=== PATIENT | male | born 1950 | race Caucasian/White ===

== ENCOUNTER → 2019-10-01 15:37 | Outpatient (BNVA) | payer MEDICARE, OTHER, SELFPAY | PROVIDERS: Family Provider Family Medicine; PCP Family Medicine; Visit Provider Internal Medicine Rheumatology | DX: M32.19 Other organ or system involvement in systemic lupus erythematosus (principal); Z79.899 Other long term (current) drug therapy; M05.9 Rheumatoid arthritis with rheumatoid factor, unspecified; D69.6 Thrombocytopenia, unspecified; R76.8 Other specified abnormal immunological findings in serum; M17.0 Bilateral primary osteoarthritis of knee; M32.9 Systemic lupus erythematosus, unspecified | CPT/HCPCS: 99214 ==

== ENCOUNTER → 2020-01-20 12:56 | Outpatient (BNVA) | payer MEDICARE, OTHER, SELFPAY | PROVIDERS: Family Provider Family Medicine; PCP Family Medicine; Visit Provider Internal Medicine Rheumatology | DX: M32.19 Other organ or system involvement in systemic lupus erythematosus (principal); Z79.899 Other long term (current) drug therapy; M05.9 Rheumatoid arthritis with rheumatoid factor, unspecified; R76.8 Other specified abnormal immunological findings in serum; D69.6 Thrombocytopenia, unspecified; M17.0 Bilateral primary osteoarthritis of knee; Z79.52 Long term (current) use of systemic steroids; Z91.81 History of falling | CPT/HCPCS: 99214 ==

== ENCOUNTER 2020-01-21 14:58 | Outpatient (CLI) | payer MEDICARE, OTHER, SELFPAY ==
--- NOTE | 2020-01-21 15:25 | XR_ITS ---
WS: [id number] LEFT RIBS, MULTIPLE VIEWS HISTORY: rib pain COMPARISON: None available. Ribs: Nondisplaced anterolateral ninth and 10th rib fractures. The remaining ribs appear to be intact . Lungs and mediastinum: Subsegmental atelectasis at the LEFT lung base with blunting of the costophren ic angle. No pneumothorax. XR/XR ribs LT 2V* [id number] IMPRESSION: 1. Nondisplaced LEFT anterolateral ninth and 10th rib fractures. 2. Subsegmental atelectasis at the LEFT lung base.
== END 2020-01-21 14:59 | disposition home or self-care (01) ==
LOC: WPI 15:00
PROVIDERS: Family Provider Family Medicine; PCP Family Medicine; Visit Provider Internal Medicine Rheumatology
DX: S22.42XA Multiple fractures of ribs, left side, initial encounter for closed fracture (principal); X58.XXXA Exposure to other specified factors, initial encounter; J98.11 Atelectasis
CPT/HCPCS: 71100

== ENCOUNTER → 2020-05-23 14:02 | Outpatient (BNVA) | payer MEDICARE, OTHER, SELFPAY | PROVIDERS: Family Provider Family Medicine; PCP Family Medicine; Visit Provider Internal Medicine Rheumatology | DX: R76.8 Other specified abnormal immunological findings in serum (principal); M32.19 Other organ or system involvement in systemic lupus erythematosus; Z79.899 Other long term (current) drug therapy; D69.6 Thrombocytopenia, unspecified; M17.0 Bilateral primary osteoarthritis of knee; Z87.09 Personal history of other diseases of the respiratory system | CPT/HCPCS: 99214 ==

== ENCOUNTER → 2021-05-15 14:53 | Outpatient (BNVA) | payer MEDICARE, OTHER, SELFPAY | PROVIDERS: Family Provider Family Medicine; PCP Family Medicine; Visit Provider Internal Medicine Rheumatology | DX: R76.8 Other specified abnormal immunological findings in serum (principal); M32.19 Other organ or system involvement in systemic lupus erythematosus; Z79.899 Other long term (current) drug therapy; M17.0 Bilateral primary osteoarthritis of knee; Z91.81 History of falling; Z71.89 Other specified counseling | CPT/HCPCS: 99214 ==

== ENCOUNTER 2021-06-06 20:00 | Outpatient (CLI) | payer MEDICARE, OTHER, SELFPAY | END 2021-06-06 20:01 | disposition home or self-care (01) | LOC: SLEEP 06-07 05:31 | PROVIDERS: Family Provider Family Medicine; PCP Family Medicine; Visit Provider Family Medicine | DX: G47.33 Obstructive sleep apnea (adult) (pediatric) (principal) | CPT/HCPCS: 95811 ==

== ENCOUNTER 2021-08-24 20:00 | Outpatient (CLI) | payer MEDICARE, OTHER, SELFPAY | END 2021-08-24 20:01 | disposition home or self-care (01) | LOC: SLEEP 08-25 06:39 | PROVIDERS: Family Provider Family Medicine; PCP Family Medicine; Visit Provider Family Medicine | DX: G47.33 Obstructive sleep apnea (adult) (pediatric) (principal) | CPT/HCPCS: 95811 ==

== ENCOUNTER → 2021-11-20 14:26 | Outpatient (BNVA) | payer MEDICARE, OTHER, SELFPAY | PROVIDERS: Family Provider Family Medicine; PCP Family Medicine; Visit Provider Internal Medicine Rheumatology | DX: R76.8 Other specified abnormal immunological findings in serum (principal); M32.19 Other organ or system involvement in systemic lupus erythematosus; D69.6 Thrombocytopenia, unspecified; M17.0 Bilateral primary osteoarthritis of knee; Z71.89 Other specified counseling | CPT/HCPCS: 99214 ==

== ENCOUNTER 2022-04-21 12:52 | Inpatient (IN) | payer MEDICARE, OTHER, SELFPAY ==
[2022-04-21] VITALS (61 sets, daily range): BP systolic 112–163; BP diastolic 67–113; PULSE 78–103; RESP 17–20; TEMP 36.9–37.1; O2SAT 88–95; BMI 33.0; BMI 31.4
--- NOTE | 2022-04-21 13:27 | XRR_ITS ---
PROCEDURE INFORMATION: Exam: XR Chest Exam date and time: 04/21/2022 2:20 PM Age: 72 years old Clinical indication: Shortness of breath TECHNIQUE: Imaging protocol: Radiologic exam of the chest. Views: 2 views. COMPARISON: CT chest w con* [id number] 06/06/2015 11:31 AM FINDINGS: Lungs: Right lower lobe atelectasis versus infiltrate. Right upper lobe 15 mm possible pulmonary nodule, chest CT could further evaluate this. Pleural spaces: Unremarkable. No pleural effusion. No pneumothorax. Heart/Mediastinum: Unremarkable. No cardiomegaly. Bones/joints: Unremarkable. XR/XR chest 2V* [id number] IMPRESSION: 1. Right lower lobe atelectasis versus infiltrate. 2. Right upper lobe 15 mm possible pulmonary nodule, chest CT could further evaluate this.
--- NOTE | 2022-04-21 13:43 | W.ED.GENADLT ---
HPI - General Adult General: Chief complaint: General Medical Stated complaint: low ox, congestion Time Seen by Provider: 04/21/22 13:08 History of Present Illness: 72-year-old male presents to the ER chief complaint of low oxygenation coughing and shortness of breath. Patient recalls that he got the flu when his family got sick just right after Thanksgiving he reports that he has had persistent shortness of breath with a cough since that time his reports that he had a coughing episode in it with he had some thick phlegm production patient reports no fevers or chills. He reports he does have a history of lupus in which he is taking hydroxychloroquine. Patient does not recall having chest pain or palpitation does report some mild chest pressure with his coughing reports when he coughs he does get greenish sputum production patient does not report any known significant cardiac history. Associated symptoms: Reports dyspnea and malaise; Deny chest pain, headache(s), nausea, rash, palpitations or vomiting Review of Systems General: Reports: 10 or more systems reviewed and unremarkable except in HPI and below Const: Reports: fever(s), body aches, fatigue and malaise; Denies: chills Eyes: Denies: change in vision or blurry vision Card: Denies: chest pain or palpitations Resp: Reports: dyspnea, productive cough, wheezing and change in phlegm color GI: Denies: abdominal pain, nausea or vomiting : Denies: flank pain Musc: Denies: extremity pain or extremity swelling Skin/Breast: Denies: rash or pruritus Neuro: Denies: headache(s) Psych: Denies: anxiety or depression Daniel/Lymph: Denies: easy bleeding All/Imm: Denies: urticaria, throat swelling or facial swelling PFSH ED PFSH: Medical History High risk medication use Immunization counseling Osteoarthritis of knees, bilateral Positive RUSH (antinuclear antibody) SLE (systemic lupus erythematosus) Thrombocytopenia Surgical History History of tonsillectomy Family History Other Cancer Hypertension Stroke Denies family history of Rheumatoid arthritis Systemic lupus erythematosus (SLE) in adult Social History (Reviewed 04/21/22 @ 16:57 by Chris Boone Smoking and tobacco status: never smoked Alcohol intake: never History of recent travel: No Physical Exam Const: COMMON NORMALS: no acute distress, patient oriented x3 and healthy appearing HENMT: COMMON NORMALS: normocephalic and atraumatic HEAD & SCALP: normocephalic and atraumatic Eye: COMMON NORMALS: Equal, round and reactive pupils present and EOMs intact bilaterally PUPIL: Yes Equal, round and reactive pupils present Neck/C-Spine: COMMON NORMALS: full ROM, supple and no JVD Lymph: LYMPHATIC: no lymphadenopathy noted Chest: COMMONS NORMALS: normal inspection of the chest and normal palpation of entire chest wall Resp: OTHER: Diminished breath sounds appreciated bilaterally no obvious symptoms wheezing or crackles noted Cardio: COMMON NORMALS: no JVD, regular rate and regular rhythm RATE: regular rate RHYTHM: regular rhythm GI: COMMON NORMALS: Normal to inspection, nondistended, normoactive bowel sounds present, Soft to palpation and non-tender INSPECTION: Yes normal to inspection PALPATION: Yes Soft to palpation : COMMON NORMALS: Yes no CVA tenderness BLADDER/KIDNEY EXAM: Yes no CVA tenderness Back/Pelvis: COMMON NORMALS: no CVA tenderness Extremity: COMMON NORMALS: normal to inspection and full ROM Neuro: COMMON NORMALS: patient oriented x3, CN's II-XII intact bilaterally, moves all extremities and no focal motor deficits Psych: COMMON NORMALS: mental status grossly normal, Normal thought process present, cooperative and normal affect THOUGHT PROCESS: Normal thought process present Skin: COMMON NORMALS: no rashes or lesions noted GENERAL SKIN EXAM: no rashes or lesions noted Course Vital Signs: Vital signs: Vital Signs Temperature 98.7 F 04/21/22 13:01 Pulse Rate 88 04/21/22 13:01 Respiratory Rate 17 04/21/22 13:01 Blood Pressure 163/108 04/21/22 14:45 Pulse Oximetry 90 04/21/22 14:45 Oxygen Delivery Me thod 04/21/22 13:01 [facility] - General Adult Medical Decision Making Due to the patient's symptoms and condition lab work and imaging will be obtained we will continue to follow medication will provided for the patient's of the symptoms. Patient's first cardiac troponin was found to be elevated 1 to wait for delta [place]. In addition patient was found to have a pulmonary nodule of 15 mm noted on his chest x-ray which is recommended he get a CT of the chest. Patient also has a questionable pneumonia we will continue to follow. Patient found to have pneumonia patient also liver enzymes are elevated we will be admitting the patient to the hospitalist discussed patient's case with Dr. Misa Quick acceptance to [facility] telemetry. Lab Data 04/21/22 13:47 04/21/22 13:47 Radiology Impressions Chest X-Ray 04/21/22 13:27 IMPRESSION: 1. Right lower lobe atelectasis versus infiltrate. 2. Right upper lobe 15 mm possible pulmonary nodule, chest CT could further evaluate this. Chest CT 04/21/22 15:34 IMPRESSION: 1. Bibasilar bilateral largely dependent atelectasis versus infiltrate along with right upper lobe somewhat focal infiltrate, felt to likely correspond to the suspected nodule on comparison chest x-ray. 2. Right middle lobe 6.9 mm pulmonary nodule. For patients at low risk (minimal or absent history of smoking and of other known risk factors), recommend CT Chest at 6-12 months, then consider CT Chest at 18-24 months. For patients at high risk (history of smoking or of other known risk factors), recommend CT Chest at 6-12 months, then CT Chest at 18-24 months. (Reference: Eloise) 3. Left kidney cyst incompletely visualized. 4. Cholelithiasis. 5. Scattered prominent subcentimeter short axis mediastinal lymph nodes, nonspecific. 6. Coronary artery atherosclerotic calcifications. 7. Emphysematous changes. COMMENTS: Consistent with the [place] [employer] [place] [employer]'s Incidental Findings Committee white paper (J Am Gene Radiol 2018): Any incidental renal lesion less than 1 cm or classified as too small to characterize, or any incidental cystic renal lesion characterized as simple-appearing, is likely benign. No follow-up imaging is recommended for these lesions per consensus recommendations based on imaging criteria. REFERENCES: Eloise Colindres, et al. Guidelines for Management of Incidental Pulmonary Nodules Detected on CT Images: From the Fleischner Society 2017. Radiology. 2017;284(1):228-243. Laboratory Results WBC 5.9 10^3/uL (4.0-10.0) 04/21/22 13:47 RBC 4.54 10^6/uL (4.1-5.3) 04/21/22 13:47 Hgb 14.4 g/dL (11.7-16.6) 04/21/22 13:47 Hct 40.9 % (42.0-52.0) L 04/21/22 13:47 MCV 90.1 fl (80-94) 04/21/22 13:47 MCH 31.7 pg (28.0-34.0) 04/21/22 13:47 MCHC 35.2 g/dL (30.0-36.0) 04/21/22 13:47 RDW 11.8 % (12.1-15.1) L 04/21/22 13:47 Plt Count 285 10^3/cmm (130-400) 04/21/22 13:47 MPV 9.4 fL (7.4-10.4) 04/21/22 13:47 Neut % (Auto) 70.9 % 04/21/22 13:47 Lymph % (Auto) 18.4 % 04/21/22 13:47 [place] % (Auto) 9.4 % 04/21/22 13:47 Eos % (Auto) 0.7 % 04/21/22 13:47 Baso % (Auto) 0.3 % 04/21/22 13:47 Neut # (Auto) 4.15 10^3/uL (1.8-7.7) 04/21/22 13:47 Lymph # (Auto) 1.1 10^3/uL (0.8-4.8) 04/21/22 13:47 [place] # (Auto) 0.6 10^3/uL (0.2-0.9) 04/21/22 13:47 Eos # (Auto) 0.0 10^3/uL (0.0-0.8) 04/21/22 13:47 Baso # (Auto) 0.0 10^3/uL (0.0-0.1) 04/21/22 13:47 Nucleated RBC % (auto) 0 % 04/21/22 13:47 Nucleated RBCs # 0.0 /100WBC 04/21/22 13:47 Sodium 133 mmol/L (136-145) L 04/21/22 13:47 Potassium 3.8 mmol/L (3.5-5.1) 04/21/22 13:47 Chloride 96 mmol/L (98-107) L 04/21/22 13:47 Carbon Dioxide 26 mmol/L (22-29) 04/21/22 13:47 Anion Gap 14.8 (5-19) 04/21/22 13:47 BUN 20 mg/dL (8-23) 04/21/22 13:47 Creatinine 0.9 mg/dL (0.7-1.2) 04/21/22 13:47 GFR Calculation 83.4 mL/min (90-130) L 04/21/22 13:47 Glucose 220 mg/dL (65-115) H 04/21/22 13:47 Calculated Osmolality 285 mOsm/kg (285-295) 04/21/22 13:47 Lactate 1.2 mmol/L (0.5-2.2) 04/21/22 13:47 Calcium 9.3 mg/dL (8.5-10.5) 04/21/22 13:47 Total Bilirubin 1.0 mg/dL (0.15-1.2) 04/21/22 13:47 AST 183 U/L (0-40) H 04/21/22 13:47 ALT 320 U/L (0-41) H 04/21/22 13:47 Alkaline Phosphatase 130 U/L (40-130) 04/21/22 13:47 Troponin T Baseline 23 ng/L (0-15) H 04/21/22 13:47 Troponin T 120 Minute 21.39 ng/L (0-15) H 04/21/22 15:23 Delta Troponin T -1.61 ABS# (0-10) L 04/21/22 15:23 C-Reactive Protein 150.1 mg/L (0.0-4.9) H 04/21/22 13:47 NT-Pro-B Natriuret Pep 94 pg/mL (0-125) 04/21/22 13:47 Total Protein 7.4 g/dL (6.6-8.7) 04/21/22 13:47 Albumin 3.1 g/dL (3.5-5.2) L 04/21/22 13:47 Globulin 4.3 g/dL (1.3-4.6) 04/21/22 13:47 Nasal Influ A H1 2008 PCR Not detected (NOT DETECT) 04/21/22 13:55 Adenovirus (PCR) Not detected (NOT DETECT) 04/21/22 13:55 C. pneumoniae DNA (PCR) Not detected (NOT DETECT) 04/21/22 13:55 Coronavirus 229E (PCR) Not detected (NOT DETECT) 04/21/22 13:55 Human Metapneumovir PCR Not detected (NOT DETECT) 04/21/22 13:55 Influenza A (H1) PCR Not detected (NOT DETECT) 04/21/22 13:55 Influenza A (H3) PCR Not detected (NOT DETECT) 04/21/22 13:55 Influenza Type A (PCR) Not detected (NOT DETECT) 04/21/22 13:55 Influenza Type B (PCR) Not detected (NOT DETECT) 04/21/22 13:55 M. pneumoniae (PCR) Not detected (NOT DETECT) 04/21/22 13:55 Parainfluenza 1 (PCR) Not detected (NOT DETECT) 04/21/22 13:55 Parainfluenza 2 (PCR) Not detected (NOT DETECT) 04/21/22 13:55 Parainfluenza 3 (PCR) Not detected (NOT DETECT) 04/21/22 13:55 Parainfluenza 4 (PCR) Not detected (NOT DETECT) 04/21/22 13:55 RSV Type A (PCR) Not detected (NOT DETECT) 04/21/22 13:55 RSV Type B (PCR) Not detected (NOT DETECT) 04/21/22 13:55 Entero/Rhino (PCR) Not detected (NOT DETECT) 04/21/22 13:55 SARS-CoV-2 (PCR) Not detected (NOT DETECT) 04/21/22 13:55 Discharge Plan Discharge Condition: Stable Prescriptions: No Action hydroxychloroquine [Plaquenil] 200 mg tablet 400 mg PO DAILY Qty: 180 1RF atorvastatin 10 mg tablet 10 mg PO DAILY amlodipine 5 mg tablet 5 mg PO DAILY loratadine [Claritin] 10 mg tablet 10 mg PO DAILY PRN (Reason: Allergy Symptoms) valsartan 160 mg tablet 160 mg PO DAILY Referrals: Magdaleno Martinez MD [Primary Care Provider] - Coding Level of Care Code ED Jointer Machine Operator for [facility] Fwd Exam Comprehensive
--- NOTE | 2022-04-21 13:57 | ECG_ITS ---
[facility] Test Date: 2022-04-21 Pat Name: Elijah Castro Department: Room: Gender: Male Accountant Machine Processing: : 1950 Requested By: Chris Lawrence Order Number: [id number] Reading MD: Apollo Andrade M.D. Measurements Intervals [place] Rate: 81 P: 40 WI: 133 QRS: 32 QRSD: 90 T: 82 QT: 314 QTc: 365 Interpretive Statements SINUS RHYTHM NONSPECIFIC ST & T-WAVE ABNORMALITY No previous ECG available for comparison Electronically Signed On 04-21-2022 16:43:56 SHOVEL MECHANIC by Apollo Andrade M.D. [id number]
[2022-04-21 14:27] LABS: Basophils % 0.3 %; Eosinophils % 0.7 %; Hematocrit 40.9 % (42.0-52.0); Hemoglobin 14.4 g/dL (11.7-16.6); Lymphocytes # 1.1 10^3/uL (0.8-4.8); Lymphocytes % 18.4 %; Mean Corpuscular HGB Conc 35.2 g/dL (30.0-36.0); Mean Corpuscular Hemoglobin 31.7 pg (28.0-34.0); Mean Corpuscular Volume 90.1 fl (80-94); Mean Platelet Volume 9.4 fL (7.4-10.4); Monocytes # 0.6 10^3/uL (0.2-0.9); Monocytes % 9.4 %; Neutrophils # 4.15 10^3/uL (1.8-7.7); Neutrophils % 70.9 %; Nucleated Red Blood Cells % 0 %; Platelet Count 285 10^3/cmm (130-400); Red Blood Count 4.54 10^6/uL (4.1-5.3); Red Cell Distribution Width 11.8 % (12.1-15.1); White Blood Count 5.9 10^3/uL (4.0-10.0)
[2022-04-21 14:48] LABS: Lactate (Lactic Acid level) 1.2 mmol/L (0.5-2.2)
[2022-04-21 14:50] LABS: Troponin(5th) Baseline 23 ng/L (0-15)
[2022-04-21 14:54] LABS: Alanine Aminotransferase 320 U/L (0-41); Albumin Level 3.1 g/dL (3.5-5.2); Alkaline Phosphatase 130 U/L (40-130); Anion Gap 14.8 (5-19); Aspartate Amino Transferase 183 U/L (0-40); Blood Urea Nitrogen 20 mg/dL (8-23); C Reactive Protein 150.1 mg/L (0.0-4.9); Calcium 9.3 mg/dL (8.5-10.5); Carbon Dioxide 26 mmol/L (22-29); Chloride 96 mmol/L (98-107); Globulin 4.3 g/dL (1.3-4.6); Glomerular Filtration Rate 83.4 mL/min (90-130); Glucose 220 mg/dL (65-115); Osmolality Calculated 285 mOsm/kg (285-295); Potassium 3.8 mmol/L (3.5-5.1); Sodium 133 mmol/L (136-145); Total Protein 7.4 g/dL (6.6-8.7)
[2022-04-21 14:58] LABS: NT Pro B Type Natriuretic Pept 94 pg/mL (0-125)
--- NOTE | 2022-04-21 15:34 | CTR_ITS ---
PROCEDURE INFORMATION: Exam: CT Chest With Contrast; Diagnostic Exam date and time: 04/21/2022 5:14 PM Age: 72 years old Clinical indication: Other: Pulmonary nodule TECHNIQUE: Imaging protocol: Diagnostic computed tomography of the chest with contrast. Radiation optimization: All CT scans at this facility use at least one of these dose optimization techniques: automated exposure control; mA and/or kV adjustment per patient size (includes targeted exams where dose is matched to clinical indication); or iterative reconstruction. Contrast material: OMNI 350; Contrast volume: 100 ml; Contrast route: INTRAVENOUS (IV); COMPARISON: CT chest w con* [id number] 06/06/2015 11:31 AM RADIATION DOSE METRICS: Total DLP (mGy-cm): 658.11 FINDINGS: Lungs: Bibasilar bilateral largely dependent atelectasis versus infiltrate along with right upper lobe somewhat focal infiltrate, felt to likely correspond to the suspected nodule on comparison chest x-ray. Right middle lobe 6.9 mm pulmonary nodule. Emphysematous changes. Pleural spaces: Unremarkable. No pneumothorax. No pleural effusion. Heart: Unremarkable. No cardiomegaly. No pericardial effusion. Coronary arteries: Coronary artery atherosclerotic calcifications. Lymph nodes: Scattered prominent subcentimeter short axis mediastinal lymph nodes, nonspecific. Vasculature: Unremarkable. No aortic aneurysm. Gallbladder and bile ducts: Cholelithiasis. Kidneys and ureters: Left kidney cyst incompletely visualized. Bones/joints: Unremarkable. No acute fracture. Soft tissues: Unremarkable. CT/CT chest w con* [id number] IMPRESSION: 1. Bibasilar bilateral largely dependent atelectasis versus infiltrate along with right upper lobe somewhat focal infiltrate, felt to likely correspond to the suspected nodule on comparison chest x-ray. 2. Right middle lobe 6.9 mm pulmonary nodule. For patients at low risk (minimal or absent history of smoking and of other known risk factors), recommend CT Chest at 6-12 months, then consider CT Chest at 18-24 months. For patients at high risk (history of smoking or of other known risk factors), recommend CT Chest at 6-12 months, then CT Chest at 18-24 months. (Reference: Eloise) 3. Left kidney cyst incompletely visualized. 4. Cholelithiasis. 5. Scattered prominent subcentimeter short axis mediastinal lymph nodes, nonspecific. 6. Coronary artery atherosclerotic calcifications. 7. Emphysematous changes. COMMENTS: Consistent with the [place] [employer]'s Incidental Findings Committee white paper (J Am Gene Radiol 2018): Any incidental renal lesion less than 1 cm or classified as too small to characterize, or any incidental cystic renal lesion characterized as simple-appearing, is likely benign. No follow-up imaging is recommended for these lesions per consensus recommendations based on imaging criteria. REFERENCES: Eloise Colindres, et al. Guidelines for Management of Incidental Pulmonary Nodules Detected on CT Images: From the Fleischner Society 2017. Radiology. 2017;284(1):228-243.
--- NOTE | 2022-04-21 15:43 | ECG_ITS ---
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 Measurements Intervals [place] Rate: 78 P: 55 SC: 164 QRS: 28 QRSD: 102 T: 90 QT: 313 QTc: 359 Interpretive Statements SINUS RHYTHM POSSIBLE LATERAL MYOCARDIAL INFARCTION , OF INDETERMINATE AGE [30 ms Q WAVE IN I/aVL/V5/V6] Compared to ECG 04/21/2022 13:57:28 Myocardial infarct finding now present T-wave abnormality no longer present Electronically Signed On 04-21-2022 16:47:14 UNDERGROUND BOLTING MACHINE OPERATOR by Apollo Andrade M.D. [id number]
[2022-04-21 15:45] LABS: Adenovirus Not Detected (NOT DETECT); Chlamydia Pneumoniae Not Detected (NOT DETECT); Coronavirus 229E,HKU1,NL63,OC4 Not Detected (NOT DETECT); Human Metapneumovirus Not Detected (NOT DETECT); Human Rhinovirus/Enterovirus Not Detected (NOT DETECT); Influenza A Not Detected (NOT DETECT); Influenza A H1 Not Detected (NOT DETECT); Influenza A H1-2009 Not Detected (NOT DETECT); Influenza A H3 Not Detected (NOT DETECT); Influenza B Not Detected (NOT DETECT); Mycoplasma Pneumoniae Not Detected (NOT DETECT); Parainfluenza Virus Type 1 Not Detected (NOT DETECT); Parainfluenza Virus Type 2 Not Detected (NOT DETECT); Parainfluenza Virus Type 3 Not Detected (NOT DETECT); Parainfluenza Virus Type 4 Not Detected (NOT DETECT); Respiratory Syncytial Virus A Not Detected (NOT DETECT); Respiratory Syncytial Virus B Not Detected (NOT DETECT); SARS-COV-2 Not Detected (NOT DETECT)
[2022-04-21 15:55] LABS: Troponin 5 2HR 21.39 ng/L (0-15); Troponin 5 2HR Delta -1.61 ABS# (0-10)
[2022-04-21] MEDS: iohexol 350 mg/mL 500 mL Btl (per mL) IV (17:21)
[2022-04-21] MEDS: cefTRIAXone 1,000 MG in sodium chloride 0.9% (plus) 50 ML 100 MG IV (17:37)
--- NOTE | 2022-04-21 18:03 | P.HP_ITS ---
Providers/Chief Complaint Admitting Physician: Cheko Rehman MD Primary Care Provider: Magdaleno Martinez MD Chief Complaint: low ox, congestion History of Present Illness Elijah Castro is a 72 year old male with a past medical history significant for systemic lupus erythematosus and thrombocytopenia who presents to the emergency department with cough and shortness of breath. Reports symptoms started shortly after Thanksgiving. He reports he thinks he had the flu and has had persistent shortness of breath and cough since that time. He states today symptoms just got so bad that he could not catch his breath. He endorses associated thick yellowish-green phlegm production. Endorses associated chest congestion. He denies fevers or chills. He does have a history of lupus for which he takes hydroxychloroquine. Patient denies palpitations, rash, headaches, nausea, or vomiting. Review of Systems Narrative: A complete review of systems was obtained and is negative except as stated in HPI. Medications/Allergies Home Medications Medication Instructions Recorded Confirmed Last Taken Type amlodipine 5 mg tablet 5 mg PO DAILY 09/30/19 04/21/22 04/20/22 History atorvastatin 10 mg tablet 10 mg PO DAILY 09/30/19 04/21/22 04/20/22 History loratadine 10 mg tablet (Claritin) 10 mg PO DAILY PRN Allergy Symptoms 10/01/19 04/21/22 Unknown History valsartan 160 mg tablet 160 mg PO DAILY 05/15/21 04/21/22 04/20/22 History hydroxychloroquine 200 mg tablet 400 mg PO DAILY #180 tabs 11/20/21 04/21/22 04/20/22 Rx (Plaquenil) Allergies Allergy/AdvReac Type Severity Reaction Status Date / Time No Known Allergies Allergy Verified 11/20/21 14:43 PFSH Acute PFSH: Medical History (Updated 04/21/22 @ 18:08 by Cheko Rehman MD) High risk medication use Hyperlipidemia Hypertension Immunization counseling Osteoarthritis of knees, bilateral Positive RUSH (antinuclear antibody) SLE (systemic lupus erythematosus) Thrombocytopenia Surgical History History of tonsillectomy Family History Other Cancer Hypertension Stroke Denies family history of Rheumatoid arthritis Systemic lupus erythematosus (SLE) in adult Social History Smoking and tobacco status: never smoked Alcohol intake: never History of recent travel: No Vitals/I&O/Wt Last Vital Signs Temp 98.7 F 04/21/22 13:01 Pulse 88 04/21/22 13:01 Resp 17 04/21/22 13:01 BP 163/108 04/21/22 14:45 Pulse Ox 90 04/21/22 14:45 O2 Del Method 04/21/22 13:01 Weight last 48 hrs Weight 104.326 kg Physical Exam Narrative: General: Patient is awake. Appears fatigued Head: Normocephal. Atraumatic. EOM intact. Neck: No JVD. Cardiovascular: RRR. No gallops. No murmurs. No peripheral edema. Lungs: Clear to auscultation, no use of accessory muscles, no crackles or wheezes. Skin: No jaundice. No rashes. Abdomen: Normal bowel sounds, abdomen soft and nontender. Genito Urinary: Genital exam not performed since complaints not related. Rectal: Rectal exam not performed since no symptoms indicated blood loss. Extremities: No cyanosis or clubbing. Musculoskeletal: 5/5 strength, normal range of motion, no swollen or erythematous joints. Neurological: Moves all 4 extremities. No myoclonus. Data 04/21/22 13:47 04/21/22 13:47 A&P Assessment and plan (1) Community acquired pneumonia: Respiratory pathogen panel is negative Strep urinary antigens ordered Legionella antigen ordered Start ceftriaxone Start azithromycin Encourage pulmonary toilet Continuous pulse oximetry (2) Transaminitis: Suspect secondary to infection Trend LFTs Acute hepatitis panel pending (3) SLE (systemic lupus erythematosus): Continue hydroxychloroquine Qualifiers: Systemic lupus erythematosus organ involvement: other Systemic lupus erythematosus type: other Qualified Code(s): M32.19 - Other organ or system involvement in systemic lupus erythematosus (4) Hypertension: Continue ACEI Continue Norvasc (5) Hyperlipidemia: Continue statin Plan DVT ppx: Lovenox Code status: Full Code Attestations Medical Necessity Statement*: Patient requires hospitalization for community acquired pneumonia for IV antibiotics, respiratory support and supportive care with expected hospitalization not to cross 2 midnights. Coding Level of Care Code Acute Edi Developer for Jude Gray Diagnoses Community acquired pneumonia J18.9 Transaminitis R74.01 SLE (systemic lupus erythematosus) M32.19 Systemic lupus erythematosus organ involvement: other Systemic lupus erythematosus type: other Hypertension I10 Hyperlipidemia E78.5
[2022-04-21 18:09] LABS: Add Urine Microscopic? NO; Charge for UA Resulting for Rev
[2022-04-21 18:12] LABS: Specific Gravity, Urine 1.005 (1.005-1.030); Urine Appearance Clear (CLEAR); Urine Color Yellow (Yellow); pH Urine 5 (5-7)
[2022-04-21 18:13] LABS: Bilirubin Urine Neg (Negative); Blood Urine Neg (Negative); Glucose Urine UA Norm (Normal); Ketones Urine Negative (Negative); Leukocyte Esterase Urine Negative (Negative); Nitrate Urine Negative (Negative); Protein Urine Neg (Negative); Urobilinogen Urine Norm (Negative)
[2022-04-21] MEDS: azithromycin 500 MG in sodium chloride 0.9% 250 ML 250 MG IV (18:17)
[2022-04-21 20:31] LABS: Troponin 5 6HR 22.59 ng/L (0-15); Troponin 5 6HR Delta -0.41 ng/L (0-12)
[2022-04-21] MEDS: doxycycline 100 MG in sodium chloride 0.9% (plus) 100 ML IV (21:14)
[2022-04-21] MEDS: enoxaparin 40 mg/0.4 mL Syringe SUBCUT (21:15)
[2022-04-21 21:20] LABS: Procalcitonin 0.12 ng/mL (0-0.5)
[2022-04-21 21:46] LABS: Hepatitis A Antibody IgM Non-Reactive (Nonreactive); Hepatitis B Core IgM Non-Reactive (Nonreactive); Hepatitis B Surface Antigen Non-Reactive (Nonreactive); Hepatitis C Virus Antibody Non-Reactive (Nonreactive)
--- NOTE | 2022-04-21 21:56 | ECG_ITS ---
[facility] Test Date: 2022-04-21 Pat Name: Elijah Castro Department: Room: 254 Gender: Male Supervisor Enrobing: : 1950 Requested By: Chris Lawrence Order Number: [id number] Lorie MD: Apollo Andrade M.D. Measurements Intervals [place] Rate: 81 P: 46 [place]: 141 QRS: 17 QRSD: 102 T: 76 QT: 309 QTc: 360 Interpretive Statements SINUS RHYTHM NONSPECIFIC ST & T-WAVE ABNORMALITY Compared to ECG 04/21/2022 15:57:58 T-wave abnormality now present Myocardial infarct finding no longer present Electronically Signed On 04-22-2022 12:54:12 PAYROLL ACCOUNTANT by Apollo Andrade M.D. [id number]
[2022-04-21] MEDS: lanolin oint 7 gm 1 APPLIC TOPICAL (22:01)
[2022-04-22] VITALS (10 sets, daily range): BP systolic 132–163; BP diastolic 63–87; PULSE 71–85; RESP 16–21; TEMP 36.7–37.2; O2SAT 88–92
[2022-04-22] MEDS: ipratropium-albuterol 3 mL Neb INHALATION (04:32)
[2022-04-22 06:12] LABS: Basophils % 0.4 %; Eosinophils # 0.1 10^3/uL (0.0-0.8); Eosinophils % 1.1 %; Hematocrit 41.1 % (42.0-52.0); Hemoglobin 14.2 g/dL (11.7-16.6); Lymphocytes # 1.3 10^3/uL (0.8-4.8); Lymphocytes % 23.7 %; Mean Corpuscular HGB Conc 34.5 g/dL (30.0-36.0); Mean Corpuscular Hemoglobin 31.8 pg (28.0-34.0); Mean Corpuscular Volume 91.9 fl (80-94); Mean Platelet Volume 10.4 fL (7.4-10.4); Monocytes # 0.6 10^3/uL (0.2-0.9); Monocytes % 10.5 %; Neutrophils # 3.43 10^3/uL (1.8-7.7); Neutrophils % 64.1 %; Nucleated Red Blood Cells % 0 %; Platelet Count 217 10^3/cmm (130-400); Red Blood Count 4.47 10^6/uL (4.1-5.3); Red Cell Distribution Width 11.9 % (12.1-15.1); White Blood Count 5.4 10^3/uL (4.0-10.0)
[2022-04-22 06:40] LABS: Alanine Aminotransferase 295 U/L (0-41); Albumin Level 2.3 g/dL (3.5-5.2); Alkaline Phosphatase 131 U/L (40-130); Blood Urea Nitrogen 16 mg/dL (8-23); Calcium 8.9 mg/dL (8.5-10.5); Carbon Dioxide 19 mmol/L (22-29); Chloride 95 mmol/L (98-107); Globulin 4.6 g/dL (1.3-4.6); Glomerular Filtration Rate 111.5 mL/min (90-130); Glucose 190 mg/dL (65-115); Magnesium 2.2 mg/dL (1.7-2.3); Osmolality Calculated 266 mOsm/kg (285-295); Phosphorus 2.9 mg/dL (2.5-4.5); Sodium 125 mmol/L (136-145); Total Bilirubin 0.8 mg/dL (0.15-1.2); Total Protein 6.9 g/dL (6.6-8.7)
[2022-04-22 06:42] LABS: Anion Gap 14.4 (5-19); Aspartate Amino Transferase 188 U/L (0-40); Potassium 3.4 mmol/L (3.5-5.1)
[2022-04-22] MEDS: doxycycline 100 MG in sodium chloride 0.9% (plus) 100 ML IV ×2 (08:47→21:34)
[2022-04-22] MEDS: losartan 50 mg Tablet PO (08:50)
[2022-04-22] MEDS: hydroxychloroquine 200 mg Tablet 400 MG PO (08:51)
[2022-04-22] MEDS: amlodipine 5 mg Tablet PO (08:51)
[2022-04-22] MEDS: atorvastatin 40 mg Tablet 20 MG PO (08:51)
--- NOTE | 2022-04-22 11:22 | PM.PN ---
Subjective Subjective: Patient continues to endorse productive cough, generalized malaise andd fatigue. Denies chest pain, abdominal pain or chills Medications: Reviewed: Yes Vitals/I&O/Wt Last Vital Signs Temp 99.0 F 04/22/22 07:47 Pulse 85 04/22/22 09:34 Resp 16 04/22/22 09:34 BP 139/82 04/22/22 08:50 Pulse Ox 92 04/22/22 09:34 O2 Del Method 04/22/22 09:34 O2 Flow Rate 2 04/21/22 20:06 04/21/22 04/22/22 04/22/22 22:59 06:59 14:59 Intake Total 700 / 700 480 / 1180 460 / 460 Balance 700 / 700 480 / 1180 460 / 460 Weight last 48 hrs Weight 99.337 kg Weight 104.326 kg Physical Exam Narrative: General: Patient is awake. Appears fatigued Head: Normocephal. Atraumatic. EOMI Neck: No JVD. Cardiovascular: RRR. No gallops. No murmurs. No peripheral edema. Lungs: Breath sounds are course, no use of accessory muscles, no crackles or wheezes. Bilateral rhonchi. Skin: No jaundice. No rashes. Abdomen: Normal bowel sounds, abdomen soft and nontender. Genito Urinary: Genital exam not performed since complaints not related. Rectal: Rectal exam not performed since no symptoms indicated blood loss. Extremities: No cyanosis or clubbing. Musculoskeletal: 5/5 strength, normal range of motion, no swollen or erythematous joints. Neurological: Moves all 4 extremities. No myoclonus. Data 04/22/22 05:35 04/22/22 05:35 Micro: Microbiology 04/21/22 18:05 Bacterial Antigens - Final Cerebrospinal Fluid 04/21/22 18:05 Legionella Urinary Antigen - Final Urine,Voided A&P Assessment and plan (1) Community acquired pneumonia: Respiratory pathogen panel is negative Legionella and strep antigen negative Continue ceftriaxone Continue doxycycline Encourage pulmonary toilet Continuous pulse oximetry Duonebs PRN (2) Transaminitis: Suspect secondary to infection Trend LFTs Acute hepatitis panel negative No abdominal pain (3) SLE (systemic lupus erythematosus): Continue hydroxychloroquine Qualifiers: Systemic lupus erythematosus type: other Systemic lupus erythematosus organ involvement: other Qualified Code(s): M32.19 - Other organ or system involvement in systemic lupus erythematosus (4) Hypertension: Continue ACEI Continue Norvasc (5) Hyperlipidemia: Continue statin Plan DVT ppx: Lovenox Code status: Full Code Attestations Medical Necessity Statement*: Patient requires hospitalization for community acquired pneumonia for IV antibiotics, respiratory support and supportive care with expected hospitalization to cross 2 midnights Coding Level of Care Code Acute Equipment Sales Specialist for [facility] Diagnoses Community acquired pneumonia J18.9 Transaminitis R74.01 SLE (systemic lupus erythematosus) M32.19 Systemic lupus erythematosus type: other Systemic lupus erythematosus organ involvement: other Hypertension I10 Hyperlipidemia E78.5
[2022-04-22] MEDS: cefTRIAXone 1,000 MG in sodium chloride 0.9% (plus) 50 ML 100 MG IV (17:05)
[2022-04-22] MEDS: enoxaparin 40 mg/0.4 mL Syringe SUBCUT (21:34)
[2022-04-23] VITALS (10 sets, daily range): BP systolic 145–170; BP diastolic 77–99; PULSE 67–80; RESP 15–22; TEMP 36.5–36.7; O2SAT 90–94
[2022-04-23] MEDS: acetaminophen 325 mg Tablet 650 MG PO ×2 (00:41→22:06)
[2022-04-23] MEDS: guaiFENesin-codeine UDC 10 mL PO ×3 (00:42→22:06)
[2022-04-23] MEDS: benzonatate 100 mg Capsule 200 MG PO ×3 (02:42→17:39)
[2022-04-23 04:32] LABS: Alanine Aminotransferase 259 U/L (0-41); Albumin Level 2.6 g/dL (3.5-5.2); Alkaline Phosphatase 133 U/L (40-130); Anion Gap 9.7 (5-19); Aspartate Amino Transferase 138 U/L (0-40); Blood Urea Nitrogen 12 mg/dL (8-23); Calcium 9.2 mg/dL (8.5-10.5); Carbon Dioxide 25 mmol/L (22-29); Chloride 100 mmol/L (98-107); Globulin 4.1 g/dL (1.3-4.6); Glomerular Filtration Rate 133.2 mL/min (90-130); Glucose 193 mg/dL (65-115); Osmolality Calculated 277 mOsm/kg (285-295); Potassium 3.7 mmol/L (3.5-5.1); Sodium 131 mmol/L (136-145); Total Bilirubin 0.7 mg/dL (0.15-1.2); Total Protein 6.7 g/dL (6.6-8.7)
[2022-04-23] MEDS: cefTRIAXone 1,000 MG in sodium chloride 0.9% (plus) 50 ML 100 MG IV (04:38)
[2022-04-23] MEDS: ipratropium-albuterol 3 mL Neb INHALATION (07:51)
[2022-04-23] MEDS: doxycycline 100 MG in sodium chloride 0.9% (plus) 100 ML IV ×2 (09:31→22:06)
[2022-04-23] MEDS: hydroxychloroquine 200 mg Tablet 400 MG PO (09:36)
[2022-04-23] MEDS: amlodipine 5 mg Tablet PO (09:36)
[2022-04-23] MEDS: losartan 50 mg Tablet PO (09:36)
[2022-04-23] MEDS: atorvastatin 40 mg Tablet 20 MG PO (09:36)
--- NOTE | 2022-04-23 16:42 | P.PN_ITS ---
Subjective Subjective: Patient was seen this morning, he patient's frustrated as he continues to have a cough, still feels weak, fatigued, short of breath, continues to have wheezing Vitals/I&O/Wt Last Vital Signs Temp 98.0 F 04/23/22 16:00 Pulse 70 04/23/22 16:00 Resp 16 04/23/22 16:00 BP 145/77 04/23/22 16:00 Pulse Ox 94 04/23/22 16:00 O2 Del Method 04/23/22 16:00 O2 Flow Rate 2 04/22/22 20:00 04/23/22 04/23/22 04/23/22 06:59 14:59 22:59 Intake Total 390 / 1620 700 / 700 Balance 390 / 1620 700 / 700 Weight last 48 hrs Weight 99.337 kg Physical Exam Const: COMMON NORMALS: no acute distress and patient oriented x3 Resp: COMMON NORMALS: normal respiratory effort, No retractions and No use of accessory muscles AUSCULTATION: wheezes Cardio: COMMON NORMALS: regular rate, regular rhythm, S1 normal heart sound present and S2 normal heart sound present RATE: regular rate RHYTHM: regul ar rhythm HEART SOUNDS: S1 normal heart sound present and S2 normal heart sound present GI: COMMON NORMALS: Normal to inspection, nondistended, normoactive bowel sounds present and non-tender Extremity: COMMON NORMALS: no pedal edema Neuro: COMMON NORMALS: patient oriented x3 Psych: COMMON NORMALS: mental status grossly normal Data 04/22/22 05:35 04/23/22 03:57 A&P Assessment and plan (1) Community acquired pneumonia: Respiratory pathogen panel is negative Legionella and strep antigen negative Continue ceftriaxone Continue doxycycline We will add on Solu-Medrol, history of smoking in the past Encourage pulmonary toilet Continuous pulse oximetry Duonebs PRN (2) Transaminitis: Suspect secondary to infection Trend LFTs Acute hepatitis panel negative No abdominal pain (3) SLE (systemic lupus erythematosus): Continue hydroxychloroquine Qualifiers: Systemic lupus erythematosus type: other Systemic lupus erythematosus organ involvement: other Qualified Code(s): M32.19 - Other organ or system involvement in systemic lupus erythematosus (4) Hypertension: Continue ACEI Continue Norvasc (5) Hyperlipidemia: Continue statin Plan DVT ppx: Lovenox Code status: Full Code Plan for today continue to monitor respiratory status add Solu-Medrol continue antibiotics monitor cultures, likely discharge next 24 hours Attestations Medical Necessity Statement*: Patient requires hospitalization for pneumonia Coding Level of Care Code Acute Stator Tester for [facility] Diagnoses Community acquired pneumonia J18.9 Transaminitis R74.01 SLE (systemic lupus erythematosus) M32.19 Systemic lupus erythematosus type: other Systemic lupus erythematosus organ involvement: other Hypertension I10 Hyperlipidemia E78.5
[2022-04-23] MEDS: cefTRIAXone 1,000 MG in sodium chloride 0.9% (plus) 50 ML 1 MG IV (17:41)
[2022-04-23] MEDS: enoxaparin 40 mg/0.4 mL Syringe SUBCUT (22:05)
[2022-04-24] VITALS (8 sets, daily range): BP systolic 151–170; BP diastolic 77–93; PULSE 65–77; RESP 14–18; TEMP 36.4–36.9; O2SAT 90–94
[2022-04-24 04:33] LABS: Basophils % 0.2 %; Hematocrit 40.1 % (42.0-52.0); Hemoglobin 14.3 g/dL (11.7-16.6); Lymphocytes # 0.6 10^3/uL (0.8-4.8); Lymphocytes % 11.3 %; Mean Corpuscular HGB Conc 35.7 g/dL (30.0-36.0); Mean Corpuscular Hemoglobin 31.7 pg (28.0-34.0); Mean Corpuscular Volume 88.9 fl (80-94); Mean Platelet Volume 9.2 fL (7.4-10.4); Monocytes # 0.2 10^3/uL (0.2-0.9); Monocytes % 3.4 %; Neutrophils % 84.6 %; Nucleated Red Blood Cells % 0 %; Platelet Count 297 10^3/cmm (130-400); Red Blood Count 4.51 10^6/uL (4.1-5.3); Red Cell Distribution Width 11.4 % (12.1-15.1); White Blood Count 5.7 10^3/uL (4.0-10.0)
[2022-04-24] MEDS: cefTRIAXone 1,000 MG in sodium chloride 0.9% (plus) 50 ML 100 MG IV (04:42)
[2022-04-24] MEDS: guaiFENesin-codeine UDC 10 mL PO ×2 (04:42→11:17)
[2022-04-24] MEDS: benzonatate 100 mg Capsule 200 MG PO ×2 (04:42→11:17)
[2022-04-24 05:00] LABS: Alanine Aminotransferase 222 U/L (0-41); Alkaline Phosphatase 146 U/L (40-130); Anion Gap 13.2 (5-19); Aspartate Amino Transferase 77 U/L (0-40); Blood Urea Nitrogen 16 mg/dL (8-23); Calcium 9.4 mg/dL (8.5-10.5); Carbon Dioxide 23 mmol/L (22-29); Chloride 101 mmol/L (98-107); Globulin 4.1 g/dL (1.3-4.6); Glomerular Filtration Rate 111.5 mL/min (90-130); Glucose 315 mg/dL (65-115); Osmolality Calculated 289 mOsm/kg (285-295); Phosphorus 2.7 mg/dL (2.5-4.5); Potassium 4.2 mmol/L (3.5-5.1); Sodium 133 mmol/L (136-145); Total Bilirubin 0.5 mg/dL (0.15-1.2); Total Protein 7.1 g/dL (6.6-8.7)
[2022-04-24] MEDS: ipratropium-albuterol 3 mL Neb INHALATION (07:40)
[2022-04-24] MEDS: losartan 50 mg Tablet PO (08:13)
[2022-04-24] MEDS: atorvastatin 40 mg Tablet 20 MG PO (08:13)
[2022-04-24] MEDS: doxycycline 100 MG in sodium chloride 0.9% (plus) 100 ML IV (08:13)
[2022-04-24] MEDS: predniSONE 20 mg Tablet 40 MG PO (08:13)
[2022-04-24] MEDS: amlodipine 5 mg Tablet PO (08:13)
[2022-04-24] MEDS: hydroxychloroquine 200 mg Tablet 400 MG PO (08:15)
[2022-04-24] MEDS: loratadine 10 mg Tablet PO (11:17)
--- NOTE | 2022-04-24 12:24 | PM.DCS ---
Discharge Providers Date of Admission: 04/22/22 16:09 Date of Discharge: April 24, 2022 Attending Provider at Admission: Cheko Rehman MD Attending Provider at Discharge: Nelson Hein MD Primary Care Provider: Magdaleno Martinez MD Diagnoses at Discharge Discharge Diagnosis (1) Community acquired pneumonia: Status: Acute (2) Transaminitis: Status: Acute (3) SLE (systemic lupus erythematosus): Status: Acute Qualifiers: Systemic lupus erythematosus type: other Systemic lupus erythematosus organ involvement: other Qualified Code(s): M32.19 - Other organ or system involvement in systemic lupus erythematosus (4) Hypertension: Status: Acute (5) Hyperlipidemia: Status: Acute Reason for Visit Reason for Visit: low ox, congestion Hospital Course Hospital Course tomer Castro is a 72 year old male with a past medical history significant for systemic lupus erythematosus and thrombocytopenia who presents to the emergency department with cough and shortness of breath.? Patient was seen to [facility] for pneumonia, received broad-spectrum antibiotic therapy, inhaler therapy, oxygen therapy, clinically monitored. Patient overall clinically improved, remained afebrile, on room air. Patient will be discharged with antibiotic therapy, inhaler therapy with close follow-up with the primary care provider as outpatient Patient was also found to have transaminitis, likely secondary to pneumonia, monitor LFTs as outpatient. He did have cholelithiasis however no right upper quadrant pain, continue to monitor. No significant bili elevation, alk phos in the 130s-140s. if he does develop right upper quadrant pain go to the emergency room Patient was also found to have a right middle lobe pulmonary nodule, 6.9 mm, no history of smoking, follow-up with Dr. Acosta in 1 month Physical Exam Const: COMMON NORMALS: no acute distress and patient oriented x3 Resp: COMMON NORMALS: normal respiratory effort, No retractions, No use of accessory muscles and clear to auscultation bilaterally AUSCULTATION: clear to auscultation bilaterally Cardio: COMMON NORMALS: regular rate, regular rhythm, S1 normal heart sound present and S2 normal heart sound present RATE: regular rate RHYTHM: regular rhythm HEART SOUNDS: S1 normal heart sound present and S2 normal heart sound present GI: COMMON NORMALS: Normal to inspection, nondistended, normoactive bowel sounds present and non-tender Extremity: COMMON NORMALS: no pedal edema Neuro: COMMON NORMALS: patient oriented x3 Psych: COMMON NORMALS: mental status grossly normal Discharge Data Studies Completed and Pending Completed Studies During Hospitalization Category Date Time Status CT chest w con* [id number] Stat Cat Scan 04/21/22 15:34 Completed XR chest 2V* [id number] Stat Exams 04/21/22 13:27 Completed Pending at discharge Category Date Time Status Complete Blood Count w/Auto AM LABS Lab 04/25/22 04:00 Ordered Complete Blood Count w/Auto AM LABS Lab 04/26/22 04:00 Ordered Comprehensive Metabolic Panel AM LABS Lab 04/25/22 04:00 Ordered Comprehensive Metabolic Panel AM LABS Lab 04/26/22 04:00 Ordered Magnesium AM LABS Lab 04/25/22 04:00 Ordered Magnesium AM LABS Lab 04/26/22 04:00 Ordered Phosphorus AM LABS Lab 04/25/22 04:00 Ordered Phosphorus AM LABS Lab 04/26/22 04:00 Ordered Radiology Impressions Chest X-Ray 04/21/22 13:27 IMPRESSION: 1. Right lower lobe atelectasis versus infiltrate. 2. Right upper lobe 15 mm possible pulmonary nodule, chest CT could further evaluate this. Chest CT 04/21/22 15:34 IMPRESSION: 1. Bibasilar bilateral largely dependent atelectasis versus infiltrate along with right upper lobe somewhat focal infiltrate, felt to likely correspond to the suspected nodule on comparison chest x-ray. 2. Right middle lobe 6.9 mm pulmonary nodule. For patients at low risk (minimal or absent history of smoking and of other known risk factors), recommend CT Chest at 6-12 months, then consider CT Chest at 18-24 months. For patients at high risk (history of smoking or of other known risk factors), recommend CT Chest at 6-12 months, then CT Chest at 18-24 months. (Reference: Eloise) 3. Left kidney cyst incompletely visualized. 4. Cholelithiasis. 5. Scattered prominent subcentimeter short axis mediastinal lymph nodes, nonspecific. 6. Coronary artery atherosclerotic calcifications. 7. Emphysematous changes. COMMENTS: Consistent with the [place] [employer]'s Incidental Findings Committee white paper (J Am Gene Radiol 2018): Any incidental renal lesion less than 1 cm or classified as too small to characterize, or any incidental cystic renal lesion characterized as simple-appearing, is likely benign. No follow-up imaging is recommended for these lesions per consensus recommendations based on imaging criteria. REFERENCES: Eloise Colindres, et al. Guidelines for Management of Incidental Pulmonary Nodules Detected on CT Images: From the Fleischner Society 2017. Radiology. 2017;284(1):228-243. Laboratory Results WBC 5.7 10^3/uL (4.0-10.0) 04/24/22 04:13 RBC 4.51 10^6/uL (4.1-5.3) 04/24/22 04:13 Hgb 14.3 g/dL (11.7-16.6) 04/24/22 04:13 Hct 40.1 % (42.0-52.0) L 04/24/22 04:13 MCV 88.9 fl (80-94) 04/24/22 04:13 MCH 31.7 pg (28.0-34.0) 04/24/22 04:13 MCHC 35.7 g/dL (30.0-36.0) 04/24/22 04:13 RDW 11.4 % (12.1-15.1) L 04/24/22 04:13 Plt Count 297 10^3/cmm (130-400) 04/24/22 04:13 MPV 9.2 fL (7.4-10.4) 04/24/22 04:13 Neut % (Auto) 84.6 % 04/24/22 04:13 Lymph % (Auto) 11.3 % 04/24/22 04:13 [place] % (Auto) 3.4 % 04/24/22 04:13 Eos % (Auto) 0.0 % 04/24/22 04:13 Baso % (Auto) 0.2 % 04/24/22 04:13 Neut # (Auto) 4.80 10^3/uL (1.8-7.7) 04/24/22 04:13 Lymph # (Auto) 0.6 10^3/uL (0.8-4.8) L 04/24/22 04:13 [place] # (Auto) 0.2 10^3/uL (0.2-0.9) 04/24/22 04:13 Eos # (Auto) 0.0 10^3/uL (0.0-0.8) 04/24/22 04:13 Baso # (Auto) 0.0 10^3/uL (0.0-0.1) 04/24/22 04:13 Nucleated RBC % (auto) 0 % 04/24/22 04:13 Nucleated RBCs # 0.0 /100WBC 04/24/22 04:13 Sodium 133 mmol/L (136-145) L 04/24/22 04:13 Potassium 4.2 mmol/L (3.5-5.1) 04/24/22 04:13 Chloride 101 mmol/L (98-107) 04/24/22 04:13 Carbon Dioxide 23 mmol/L (22-29) 04/24/22 04:13 Anion Gap 13.2 (5-19) 04/24/22 04:13 BUN 16 mg/dL (8-23) 04/24/22 04:13 Creatinine 0.7 mg/dL (0.7-1.2) 04/24/22 04:13 GFR Calculation 111.5 mL/min (90-130) 04/24/22 04:13 Glucose 315 mg/dL (65-115) H 04/24/22 04:13 Calculated Osmolality 289 mOsm/kg (285-295) 04/24/22 04:13 Lactate 1.2 mmol/L (0.5-2.2) 04/21/22 13:47 Calcium 9.4 mg/dL (8.5-10.5) 04/24/22 04:13 Phosphorus 2.7 mg/dL (2.5-4.5) 04/24/22 04:13 Magnesium 2.0 mg/dL (1.7-2.3) 04/24/22 04:13 Total Bilirubin 0.5 mg/dL (0.15-1.2) 04/24/22 04:13 AST 77 U/L (0-40) H 04/24/22 04:13 ALT 222 U/L (0-41) H 04/24/22 04:13 Alkaline Phosphatase 146 U/L (40-130) H 04/24/22 04:13 Troponin T Baseline 23 ng/L (0-15) H 04/21/22 13:47 Troponin T 120 Minute 21.39 ng/L (0-15) H 04/21/22 15:23 Delta Troponin T -1.61 ABS# (0-10) L 04/21/22 15:23 Troponin T Hi Sens 6Hr 22.59 ng/L (0-15) H 04/21/22 19:47 Troponin T Hi Sens 6Hr Delta -0.41 ng/L (0-12) L 04/21/22 19:47 C-Reactive Protein 150.1 mg/L (0.0-4.9) H 04/21/22 13:47 NT-Pro-B Natriuret Pep 94 pg/mL (0-125) 04/21/22 13:47 Total Protein 7.1 g/dL (6.6-8.7) 04/24/22 04:13 Albumin 3.0 g/dL (3.5-5.2) L 04/24/22 04:13 Globulin 4.1 g/dL (1.3-4.6) 04/24/22 04:13 Procalcitonin 0.12 ng/mL (0-0.5) 04/21/22 19:47 Urine Color Yellow (Yellow) 04/21/22 18:05 Urine Appearance Clear (CLEAR) 04/21/22 18:05 Urine pH 5 (5-7) 04/21/22 18:05 Ur Specific [place] 1.005 (1.005-1.030) 04/21/22 18:05 Urine Protein Neg (Negative) 04/21/22 18:05 Urine Glucose (UA) Norm (Normal) 04/21/22 18:05 Urine Ketones Negative (Negative) 04/21/22 18:05 Urine Blood Neg (Negative) 04/21/22 18:05 Urine Nitrate Negative (Negative) 04/21/22 18:05 Urine Bilirubin Neg (Negative) 04/21/22 18:05 Urine Urobilinogen Norm mg/dL (Negative) 04/21/22 18:05 Ur Leukocyte Esterase Negative (Negative) 04/21/22 18:05 Nasal Influ A H1 2009 PCR Not detected (NOT DETECT) 04/21/22 13:55 Adenovirus (PCR) Not detected (NOT DETECT) 04/21/22 13:55 C. pneumoniae DNA (PCR) Not detected (NOT DETECT) 04/21/22 13:55 Coronavirus 229E (PCR) Not detected (NOT DETECT) 04/21/22 13:55 Hepatitis A IgM Ab Non-reactive (Nonreactive) 04/21/22 13:47 Hep Bs Antigen Non-reactive (Nonreactive) 04/21/22 13:47 Hep B Core IgM Ab Non-reactive (Nonreactive) 04/21/22 13:47 Hepatitis C Antibody Non-reactive (Nonreactive) 04/21/22 13:47 Human Metapneumovir PCR Not detected (NOT DETECT) 04/21/22 13:55 Influenza A (H1) PCR Not detected (NOT DETECT) 04/21/22 13:55 Influenza A (H3) PCR Not detected (NOT DETECT) 04/21/22 13:55 Influenza Type A (PCR) Not detected (NOT DETECT) 04/21/22 13:55 Influenza Type B (PCR) Not detected (NOT DETECT) 04/21/22 13:55 M. pneumoniae (PCR) Not detected (NOT DETECT) 04/21/22 13:55 Parainfluenza 1 (PCR) Not detected (NOT DETECT) 04/21/22 13:55 Parainfluenza 2 (PCR) Not detected (NOT DETECT) 04/21/22 13:55 Parainfluenza 3 (PCR) Not detected (NOT DETECT) 04/21/22 13:55 Parainfluenza 4 (PCR) Not detected (NOT DETECT) 04/21/22 13:55 RSV Type A (PCR) Not detected (NOT DETECT) 04/21/22 13:55 RSV Type B (PCR) Not detected (NOT DETECT) 04/21/22 13:55 Entero/Rhino (PCR) Not detected (NOT DETECT) 04/21/22 13:55 SARS-CoV-2 (PCR) Not detected (NOT DETECT) 04/21/22 13:55 Vitals Last Vital Signs Temp 98.2 F 04/24/22 11:59 Pulse 77 04/24/22 11:59 Resp 18 04/24/22 11:59 BP 151/85 04/24/22 11:59 Pulse Ox 92 04/24/22 11:59 O2 Del Method 04/24/22 11:59 O2 Flow Rate 2 04/22/22 20:00 Discharge Plan Discharge Patient Disposition: Home Condition: Stable Prescriptions: New benzonatate 100 mg Capsule 200 mg PO TID PRN (Reason: Cough) 5 Days Qty: 30 0RF prednisone 20 mg Tablet 40 mg PO DAILY 5 Days Qty: 10 0RF doxycycline hyclate 100 mg tablet 100 mg PO BID 5 Days Qty: 10 0RF albuterol sulfate 90 mcg/actuation HFA aerosol inhaler 1 inh inhalation Q6H PRN (Reason: shortness of breath or wheezing) Qty: 8.5 0RF Continued hydroxychloroquine [Plaquenil] 200 mg tablet 400 mg PO DAILY Qty: 180 1RF atorvastatin 10 mg tablet 10 mg PO DAILY amlodipine 5 mg tablet 5 mg PO DAILY loratadine [Claritin] 10 mg tablet 10 mg PO DAILY PRN (Reason: Allergy Symptoms) valsartan 160 mg tablet 160 mg PO DAILY Discharge Orders: Discharge Order (Routine); Ordered 04/24/22 Ordered By: Nelson Hein Referrals: RosierVahid MD [Physician] - 1 month Magdaleno Martinez MD [Primary Care Provider] - Discharge Diet: Regular Discharge Activity: Resume usual activity Patient Instructions: Opioid Safety Activity Restrictions/Additional Instructions: - Continue facemask, hand wash, socially distance -Follow-up with rheumatology -Follow-up with pulmonary in 1 month -Take antibiotics and steroids as prescribed -Hydrate well -Have your primary care provider recheck your blood work and your liver function in 1 week Discharge Attestations Time Spent in Discharge Care*: less than 30 min Quality Metrics Clinical Quality Measures [ No reported AMI, CVA or VTE this stay] Coding Level of Care Code Acute Chg FW DC note Diagnoses Community acquired pneumonia J18.9 Transaminitis R74.01 SLE (systemic lupus erythematosus) M32.19 Systemic lupus erythematosus type: other Systemic lupus erythematosus organ involvement: other Hypertension I10 Hyperlipidemia E78.5
--- NOTE | 2022-04-24 14:11 | PC.NURSE ---
Discharge Note Patient discharged to home via private vehicle accompanied by . Discharge instructions reviewed with patient and/or vendor representatives. Mobile pharmacy medications and/or prescriptions provided. Belongings/home medications returned.
== END 2022-04-24 14:12 | disposition home or self-care (01) | DRG 195 ==
LOC: ER 13:43 → MEDSURG 18:14
PROVIDERS: Admitting Provider Internal Medicine; Emergency Provider Emergency Medicine; PCP Family Medicine; Visit Provider Family Medicine
DX: J18.9 Pneumonia, unspecified organism (principal); M32.19 Other organ or system involvement in systemic lupus erythematosus; I10 Essential (primary) hypertension; E78.5 Hyperlipidemia, unspecified; D69.6 Thrombocytopenia, unspecified; K80.20 Calculus of gallbladder without cholecystitis without obstruction; R91.8 Other nonspecific abnormal finding of lung field; M17.0 Bilateral primary osteoarthritis of knee
CPT/HCPCS: 36415; 71046; 71260; 80053; 80074; 81003; 83605; 83735; 83880; 84100; 84145; 84484; 85025; 86140; 86403; 87449; 87486; 87581; 87633; 93005; 94640; 96365; 96367; 96372; 99285; G0378; J0456; J0696; J1650; J2930; J3490; J7050; J7512; Q9967

== ENCOUNTER → 2022-05-16 13:21 | Outpatient (BNVA) | payer MEDICARE, OTHER, SELFPAY | PROVIDERS: PCP Family Medicine; Visit Provider Internal Medicine Rheumatology | DX: Z79.899 Other long term (current) drug therapy (principal); R76.8 Other specified abnormal immunological findings in serum; M32.19 Other organ or system involvement in systemic lupus erythematosus; D69.6 Thrombocytopenia, unspecified; Z71.89 Other specified counseling; R74.01 Elevation of levels of liver transaminase levels; M17.0 Bilateral primary osteoarthritis of knee; Z91.81 History of falling; Z87.09 Personal history of other diseases of the respiratory system | CPT/HCPCS: 99214 ==

== ENCOUNTER → 2022-06-18 13:50 | Outpatient (BNVA) | payer MEDICARE, OTHER, SELFPAY | PROVIDERS: PCP Family Medicine; Visit Provider Internal Medicine Pulmonary Disease | DX: R91.1 Solitary pulmonary nodule (principal); Z09 Encounter for follow-up examination after completed treatment for conditions other than malignant neoplasm; M32.19 Other organ or system involvement in systemic lupus erythematosus; R06.02 Shortness of breath | CPT/HCPCS: 99204 ==

== ENCOUNTER 2022-07-05 16:01 | Outpatient (CLI) | payer MEDICARE, OTHER, SELFPAY ==
--- NOTE | 2022-07-05 16:00 | CT_ITS ---
WS: [id number] CT CHEST CT-HIGH RESOLUTION, NONCONTRAST. HISTORY: Interstitial lung disease. Technique: High-resolution chest CT is performed in inspiration, expiration, supine and prone positio chin. All CT scans at [facility] use at least one of these dose optimization techniques: automated exposure control; mA and/or kV adjustment per patient size (includes targeted exams where dose is mat ched to clinical indication); or iterative reconstruction. DLP: 2234.18 mGy.cm COMPARISON: 04/21/2022 Findings: Mild pulmonary hyperexpansion. Very minimal reticular interstitial thickening in the periph clayton of the mid to lower lung robles. There is minimal groundglass attenuation at the lung bases. Ther e is very slight focal bronchial dilatation RIGHT lower lobe. There are a few peripheral lucencies mo re likely to the bronchial dilatation then blebs. There is no honeycombing. No significant traction b ronchiectasis. With the patient in prone position the very minimal areas of groundglass attenuation a t the lung bases do not change. 4 mm RIGHT middle noncalcified nodule is reidentified without increase in size. Nodule is new since 2 016. No pericardial or pleural effusions. Heart size is normal. Mild atherosclerosis aorta. Normal size pu lmonary artery. There are a few scattered coronary artery calcifications particularly within the LEFT anterior descending coronary. No mediastinal or hilar adenopathy. Scattered small nodules within the mediastinum are unchanged over several prior years. Small hiatal hernia. No adrenal mass. Cholelithiasis without acute cholecystitis. CT/CT chest wo con [id number] Impression: 1. No evidence for interstitial pulmonary fibrosis. 2. There is some very minimal groundglass attenuation at the lung bases and ve ry minimal RIGHT basilar bronchiectasis. No honeycombing. 3. 4 mm noncalcified RIGHT middle lobe pulmonary nodule. No change since 04/21. Consider [address] follow-up. 4. Cholelithiasis without acute cholecystitis. 5. Pulmonary hyperexpansion is mild.
== END 2022-07-05 16:02 | disposition home or self-care (01) ==
LOC: RAD 16:02
PROVIDERS: PCP Family Medicine; Visit Provider Internal Medicine Pulmonary Disease
DX: J18.9 Pneumonia, unspecified organism (principal); R91.1 Solitary pulmonary nodule; K80.20 Calculus of gallbladder without cholecystitis without obstruction
CPT/HCPCS: 71250

== ENCOUNTER 2022-07-10 11:12 | Outpatient (CLI) | payer MEDICARE, OTHER, SELFPAY ==
[2022-07-10 11:29] VITALS: PULSE 69; RESP 18; O2SAT 96
[2022-07-10] MEDS: albuterol 2.5 mg/3 mL Neb INHALATION (11:29)
[2022-07-10 11:34] VITALS: PULSE 75
== END 2022-07-10 11:13 | disposition home or self-care (01) ==
PROVIDERS: PCP Family Medicine; Visit Provider Internal Medicine Pulmonary Disease
DX: J84.9 Interstitial pulmonary disease, unspecified (principal)
CPT/HCPCS: 94060; 94726; 94729; 99204; J7613

== ENCOUNTER → 2022-09-14 12:28 | Outpatient (BNVA) | payer MEDICARE, OTHER, SELFPAY | PROVIDERS: PCP Family Medicine; Visit Provider Internal Medicine Pulmonary Disease | DX: R06.02 Shortness of breath (principal) | CPT/HCPCS: 36415; 82785; 86003; 99214 ==

== ENCOUNTER → 2022-11-19 13:00 | Outpatient (BNVA) | payer MEDICARE, OTHER, SELFPAY | PROVIDERS: PCP Family Medicine; Visit Provider Internal Medicine Rheumatology | DX: Z79.899 Other long term (current) drug therapy (principal); R76.8 Other specified abnormal immunological findings in serum; R74.01 Elevation of levels of liver transaminase levels; Z71.89 Other specified counseling; M32.19 Other organ or system involvement in systemic lupus erythematosus; D69.6 Thrombocytopenia, unspecified; M32.9 Systemic lupus erythematosus, unspecified | CPT/HCPCS: 99214 ==

== ENCOUNTER → 2023-07-23 13:23 | Outpatient (BNVA) | payer MEDICARE, OTHER, SELFPAY | PROVIDERS: PCP Family Medicine; Visit Provider Internal Medicine Rheumatology | DX: M32.19 Other organ or system involvement in systemic lupus erythematosus (principal); Z79.899 Other long term (current) drug therapy; R76.8 Other specified abnormal immunological findings in serum; D69.6 Thrombocytopenia, unspecified; Z71.89 Other specified counseling; R74.01 Elevation of levels of liver transaminase levels | CPT/HCPCS: 99214 ==

== ENCOUNTER → 2024-01-28 12:47 | Outpatient (BNVA) | payer MEDICARE, OTHER, SELFPAY | PROVIDERS: PCP Family Medicine; Visit Provider Internal Medicine Rheumatology | DX: M32.19 Other organ or system involvement in systemic lupus erythematosus (principal); R76.8 Other specified abnormal immunological findings in serum; D69.6 Thrombocytopenia, unspecified; Z79.899 Other long term (current) drug therapy; Z71.85 Encounter for immunization safety counseling; R74.01 Elevation of levels of liver transaminase levels; M17.0 Bilateral primary osteoarthritis of knee; Z87.09 Personal history of other diseases of the respiratory system | CPT/HCPCS: 99214 ==

== ENCOUNTER 2024-06-16 12:37 | Outpatient (CLI) | payer MEDICARE, OTHER, SELFPAY ==
--- NOTE | 2024-06-16 | ECG_ITS ---
[employer] [facility] Test Date: 2024-06-16 Pat Name: Elijah Castro Department: Room: Gender: Male Remote Recruiter: : 1950 Requested By: Magdaleno Lozoya Order Number: [id number] Mleo MD: Pelon Clayton M.D. Interpretive Statements EXERCISE STRESS TEST EXERCISE DATA: The patient was exercised by Xavi protocol. Baseline heart rate was 67 beats per minute. Baseline blood pressure was 124/76 millimeters of mercury. Maximal predicted heart rate was 148 beats per minute. Maximum heart rate achieved was 117 which was 79% of the maximum predicted heart rate. Maximum blood pressure was 161/64 millimeters of mercury. Total exercise time was 3 minutes. Maximum METs achieved was 4.6. The reason for ending the test was inability to continue and reach target heart rate because of shortness of breath. The patient complained of shortness of breath during the stress test, which then resolved at the end of the test. ELECTROCARDIOGRAM: BASELINE: Showed sinus rhythm, normal axis, no significant ST-T changes at the baseline noted. [] EXERCISE: At the peak exercise level, [] No significant ST-T changes suggestive of ischemia noted. [] RECOVERY: During the recovery period, heart rate dropped appropriately. No significant ST-T changes in the recovery suggestive of ischemia noted. [] CONCLUSION: 1. Exercise capacity is poor 2. Heart rate response was suboptimal. 3. Blood pressure response was appropriate 4. Symptoms of shortness of breath. Patient could not continue further exercise 5. Stress test is indeterminate to rule out ischemia as patient could not reach target heart rate. Electronically Signed On 07-05-2024 13:26:41 CRYSTAL ATTACHER by Pelon Clayton M.D. [email or web address]
[2024-06-16 13:13] VITALS: BP 143/66; PULSE 76
== END 2024-06-16 12:38 | disposition home or self-care (01) ==
LOC: CDL 12:38
PROVIDERS: PCP Family Medicine; Visit Provider Family Medicine
DX: R06.09 Other forms of dyspnea (principal); R93.1 Abnormal findings on diagnostic imaging of heart and coronary circulation
CPT/HCPCS: 93017

== ENCOUNTER 2024-06-24 11:10 | Outpatient (CLI) | payer MEDICARE, OTHER, SELFPAY ==
[2024-06-24 11:28] VITALS: PULSE 63; RESP 18; O2SAT 97
[2024-06-24] MEDS: albuterol 2.5 mg/3 mL Neb INHALATION (11:28)
== END 2024-06-24 11:11 | disposition home or self-care (01) ==
LOC: RT 11:10
PROVIDERS: PCP Family Medicine; Visit Provider Family Medicine
DX: R06.09 Other forms of dyspnea (principal)
CPT/HCPCS: 94060; 94726; 94729; J7613

== ENCOUNTER 2024-06-26 18:20 | Inpatient (IN) | payer MEDICARE, OTHER, SELFPAY ==
[2024-06-26] VITALS (7 sets, daily range): BP systolic 107–148; BP diastolic 65–78; PULSE 55–60; RESP 14–21; TEMP 36.7; O2SAT 96–98; BMI 33.7
[2024-06-26 18:50] LABS: Basophils % 0.2 %; Eosinophils # 0.1 10^3/uL (0.0-0.8); Eosinophils % 0.9 %; Hematocrit 45.6 % (37-53); Lymphocytes % 11.8 %; Mean Corpuscular HGB Conc 34.6 g/dL (30-55); Mean Corpuscular Hemoglobin 31.3 pg (27-33); Mean Corpuscular Volume 90.3 fl (82-101); Mean Platelet Volume 9.5 fL (7.4-10.4); Monocytes # 0.5 10^3/uL (0.2-0.9); Monocytes % 6.1 %; Neutrophils # 6.65 10^3/uL (1.8-7.7); Neutrophils % 80.8 %; Nucleated Red Blood Cells % 0 %; Platelet Count 99 10^3/cmm (157-399); Red Blood Count 5.05 10^6/uL (3.85-5.65); Red Cell Distribution Width 12.8 % (12.1-15.1); White Blood Count 8.23 10^3/uL (3.29-11.43)
[2024-06-26 19:07] LABS: Alanine Aminotransferase 21 U/L (0-41); Albumin Level 4.3 g/dL (3.5-5.2); Alkaline Phosphatase 80 U/L (40-130); Anion Gap 14.8 (5-19); Aspartate Amino Transferase 19 U/L (0-40); Blood Urea Nitrogen 13 mg/dL (8-23); Calcium 9.6 mg/dL (8.5-10.5); Carbon Dioxide 26 mmol/L (22-29); Chloride 101 mmol/L (98-107); Creatinine Clr Calc Pharmacy 81.6355; Globulin 2.7 g/dL (1.3-4.6); Glucose 271 mg/dL (65-115); Lipase 64 U/L (13-60); Osmolality Calculated 294 mOsm/kg (285-295); Potassium 4.8 mmol/L (3.5-5.1); Sodium 137 mmol/L (136-145)
--- NOTE | 2024-06-26 19:12 | XRR_ITS ---
PROCEDURE INFORMATION: Exam: XR Chest Exam date and time: 06/26/2024 7:41 PM Age: 74 years old Clinical indication: Chest pressure; C/O chest pain; Additional info: Cp TECHNIQUE: Imaging protocol: Radiologic exam of the chest. Views: 1 view. COMPARISON: CR XR chest 2V* [id number] 05/28/2024 2:02 PM FINDINGS: Lungs: Unremarkable. No consolidation. Pleural spaces: Unremarkable. No pleural effusion. No pneumothorax. Heart/Mediastinum: Unremarkable. No cardiomegaly. Bones/joints: Unremarkable. XR/XR chest 1V portable [id number] IMPRESSION: No acute findings.
[2024-06-26 19:30] LABS: Troponin(5th) Baseline 10 ng/L (0-15)
--- NOTE | 2024-06-26 20:02 | ECG_ITS ---
[employer] Test Date: 2024-06-26 Pat Name: Elijah Castro Department: Room: Gender: Male Wood Sawyer: : 1950 Requested By: Otto France Order Number: [id number] Lorie MD: HEBER GARCIA Measurements Intervals [place] Rate: 60 P: 56 FL: 198 QRS: -24 QRSD: 112 T: 67 QT: 434 QTc: 434 Interpretive Statements SINUS RHYTHM INCOMPLETE RIGHT BUNDLE BRANCH BLOCK [90+ ms QRS DURATION, TERMINAL R IN V1/V2, 40+ ms S IN I/aVL/V4/V5/V6] VOLTAGE CRITERIA FOR LVH [MEETS CRITERIA IN ONE OF: R(aVL), S(V1), R(V5), R(V5/V6)+S(V1)] POSSIBLE SEPTAL MYOCARDIAL INFARCTION , OF INDETERMINATE AGE [30 ms Q WAVE IN V1/V2] Compared to ECG 04/21/2022 21:56:09 Incomplete right bundle-branch block now present Left ventricular hypertrophy now present Myocardial infarct finding now present T-wave abnormality no longer present Electronically Signed On 06-27-2024 19:16:33 DIAGNOSTIC MEDICAL SONOGRAPHER by HEBER GARCIA [email or web address]
[2024-06-26] MEDS: aspirin 81 mg Chew Tablet 324 MG PO (20:24)
[2024-06-26] MEDS: nitroglycerin 0.4 mg sublingual Tablet SUBLINGUAL (20:24)
[2024-06-26] MEDS: ketorolac 30 mg/mL INJ 15 MG IVP (20:56)
[2024-06-26] MEDS: sodium chloride 0.9% 1,000 ML 999 ML IV (20:56)
--- NOTE | 2024-06-26 21:02 | CTR_ITS ---
PROCEDURE INFORMATION: Exam: CTA Chest With Contrast CTA Abdomen and Pelvis With Contrast Exam date and time: 06/26/2024 9:27 PM Age: 74 years old Clinical indication: Radiating; Abdominal pain; C/O chest/epigastric pain that radiates into upper back. ; Additional info: Chest pain, thoracic back pain TECHNIQUE: Imaging protocol: Computed tomographic angiography of the chest with contrast. Exam focused on the arteries. Computed tomographic angiography of the abdomen and pelvis with contrast. Exam focused on the arteries. 3D rendering (Not supervised by radiologist): MIP and/or 3D reconstructed images were created by the technologist. Radiation optimization: All CT scans at this facility use at least one of these dose optimization techniques: automated exposure control; mA and/or kV adjustment per patient size (includes targeted exams where dose is matched to clinical indication); or iterative reconstruction. Contrast material: OMNI 350; Contrast volume: 100 ml; Contrast route: INTRAVENOUS (IV); COMPARISON: CT chest wo con [id number] 07/05/2022 4:24 PM RADIATION DOSE METRICS: Total DLP (mGy-cm): 1462.53 FINDINGS: VASCULATURE: Pulmonary arteries: No evidence of pulmonary artery thromboembolism. Aorta: Minimal scattered calcific atheromatous disease of the thoracic aorta. No evidence of thoracic aortic aneurysm. Minimal scattered calcific atheromatous disease of the abdominal aorta and its major branches. No abdominal aortic aneurysm. No evidence of abdominal aortic dissection. Celiac trunk and mesenteric arteries: Normal. No occlusion or significant stenosis. Renal arteries: Normal. No occlusion or significant stenosis. Right iliac arteries: Minimal scattered calcific disease. No occlusion or significant stenosis. Left iliac arteries: Minimal scattered calcific disease. No occlusion or significant stenosis. Thyroid: Thyroid is normal. CHEST: Lungs: No focal consolidation. Pleural spaces: No pleural effusion. No pneumothorax. Heart: Heart is normal in size. No pericardial effusion. ABDOMEN AND PELVIS: Liver: The liver is unremarkable. Gallbladder and biliary ducts: 1.4 cm calcified gallstone in the dependent gallbladder. Gallbladder demonstrates a moderately thickened gallbladder wall with moderate amount of surrounding stranding and edema. No significant biliary ductal dilation. Pancreas: Moderate fatty atrophy of the pancreas. No pancreatic ductal dilation. Spleen: The spleen is unremarkable. Adrenal glands: The adrenal glands are unremarkable. Kidneys and ureters: Mild cortical atrophy of the bilateral kidneys. No hydronephrosis or hydroureter. No evidence of renal stones. Stomach and bowel: No evidence of bowel obstruction. Mild scattered colonic diverticulosis. No CT evidence of acute diverticulitis. Appendix: No evidence of acute appendicitis. Intraperitoneal space: No extraluminal free air. No significant free fluid in the abdomen or pelvis. Urinary bladder: Urinary bladder is within normal limits. Reproductive: Small coarse calcifications of the prostate. Prostate is otherwise normal in size. Lymph nodes: No distinct pathologically enlarged lymphadenopathy. Bones/joints: No acute osseous findings. Soft tissues: Visualized superficial soft tissues are within normal limits. Small fat containing right inguinal hernia. CT/CT [facility] abdpe [id number] IMPRESSION: 1.4 cm calcified gallstone in the dependent gallbladder. Gallbladder demonstrates a moderately thickened gallbladder wall with moderate amount of surrounding stranding and edema. These findings are consistent with calculus cholecystitis.
[2024-06-26] MEDS: iohexol 350 mg/mL 500 mL Btl (per mL) IV (21:28)
--- NOTE | 2024-06-26 22:29 | ED_ITS ---
HPI - Chest Pain 2 General: Chief Complaint: Chest Pain Stated Complaint: abd pain radiates to back Time Seen by Provider: 06/26/24 19:36 History of Present Illness: This patient is a 74-year-old white male who presents to the ER complaining of chest pain that radiates through to the back between the shoulder blades. Describes it as a heavy sensation and also mild heartburn sensation. Does have some mild shortness of breath. Has had some nausea. No diaphoresis. Patient denies having a cardiac history. He has been having similar symptoms since May 13 intermittently. He has had a cardiac stress test and is scheduled for an echocardiogram. Currently rates his pain an 8. Associated symptoms: Reports dyspnea and nausea Related Data Home Medications ?Medication ?Instructions ?Recorded ?Confirmed amlodipine 5 mg tablet 5 mg PO DAILY 09/30/1901/27 atorvastatin 10 mg tablet 10 mg PO DAILY 09/30/1901/11 glimepiride 2 mg tablet 2 mg PO DAILY 06/18/2201/27 cetirizine 10 mg tablet (All Day 10 mg PO DAILY PRN 01/28/24 Allergy (cetirizine)) [id number] acid 0.4 1 tab PO DAILY 09/14/22 mg-lycopene 300 mcg-lutein 250 mcg tablet (Centrum Silver) Previous Rx's ?Medication ?Instructions ?Recorded valsartan 80 mg tablet 80 mg PO DAILY #90 tabs 12/06/04 albuterol sulfate 90 mcg/actuation 1 inh inhalation Q6 H PRN shortness 06/19/23 aerosol inhaler of breath or wheezing #8.5 g gabriella hydroxychloroquine 200 mg tablet 400 mg (2 x 200 mg) P O DAILY #180 01/28/24 (Plaquenil) tabs Allergies Allergy/AdvReac Type Severity Reaction Status Date / Time No Known Allergies Allergy Verified 07/23/23 13:25 Review of Systems 2 General: Reports: 10 or more systems reviewed and unremarkable except in HPI and below Card: Reports: chest pain Resp: Reports: dyspnea GI: Reports: nausea PFSH ED 2 PFSH: Medical History Transaminitis Hyperlipidemia Hypertension Osteoarthritis of knees, bilateral Immunization counseling High risk medication use Thrombocytopenia SLE (systemic lupus erythematosus) Positive RUSH (antinuclear antibody) Surgical History History of tonsillectomy Family History Other Cancer Hypertension Stroke Denies family history of Rheumatoid arthritis Systemic lupus erythematosus (SLE) in adult Social History (Updated 01/28/24 @ 13:06 by Laura Moblye LPN) Smoking and tobacco/nicotine status: never used tobacco/nicotine Alcohol intake: current Alcohol intake frequency: holidays/special occasions only Alcohol type: beer Substance/Drug Use: never Physical Exam 2 Const: COMMON NORMALS: patient oriented x3 and no limitations GENERAL APPEARANCE: cooperative HENMT: COMMON NORMALS: normocephalic, atraumatic, Normal nasal mucous membranes and turbinates present, moist oral mucous membranes and oropharynx normal HEAD & SCALP: normal to inspection, normocephalic and atraumatic F AMRITA & SINUS: normal facial exam NOSE: Normal nasal mucous membranes and turbinates present Eye: COMMON NORMALS: Equal, round and reactive pupils present, EOMs intact bilaterally and conjunctivae normal GENERAL EYE: appearance normal, both eyes and all related structures CONJUNCTIVA: Yes conjunctivae normal PUPIL: Yes Equal, round and reactive pupils present Neck/C-Spine: COMMON NORMALS: supple and no JVD Chest: COMMONS NORMALS: normal inspection of the chest Resp: COMMON NORMALS: normal respiratory effort and clear to auscultation bilaterally AUSCULTATION: clear to auscultation bilaterally Cardio: COMMON NORMALS: no JVD, regular rate, regular rhythm, No gallops present (Cardio), No murmurs present (Cardio) and No rub (Cardio) RATE: r egular rate RHYTHM: regular rhythm GI: COMMON NORMALS: Normal to inspection, nondistended, normoactive bowel sounds present, Soft to palpation and non-tender AUSCULTATION: Yes normoactive bowel sounds PALPATION: Yes Soft to palpation : COMMON NORMALS: Yes no CVA tenderness BLADDER/KIDNEY EXAM: Yes no CVA tenderness Back/Pelvis: COMMON NORMALS: no CVA tenderness and thoracic and lumbar spine normal to inspection Extremity: COMMON NORMALS: normal to inspection Neuro: COMMON NORMALS: patient oriented x3 and CN's II-XII intact bilaterally Psych: COMMON NORMALS: mental status grossly normal, Normal thought process present and cooperative THOUGHT PROCESS: Normal thought process present Skin: COMMON NORMALS: no rashes or lesions noted, turgor normal and no jaundice GENERAL SKIN EXAM: no rashes or lesions noted and turgor normal Course 2 Vital Signs: Vital signs: Vital Signs Temperature 98.0 F 06/26/24 18:25 Pulse Rate 59 L 06/26/24 18:25 Respiratory Rate 16 06/26/24 18:25 Blood Pressure 148/76 06/26/24 18:25 Pulse Oximetry 97 06/26/24 18:25 Oxygen Delivery Me thod Room Air 06/26/24 18:25 MDM - Chest Pain Medical Decision Making EKG revealed normal sinus rhythm with no ST segment abnormalities. Chest x-ray was normal. CBC and CMP were normal. Troponin was 10. CT angiogram of the chest abdomen pelvis was read by the radiologist. There is a 1.4 cm stone in the gallbladder with thickened gallbladder wall and surrounding inflammation consistent with calculus cholecystitis. Patient was initially given aspirin and nitro. He is not sure if the nitro helped. We then tried some Toradol which did help alleviate his discomfort. He is pain-free at this time. I discussed this case with Dr. Ball, general surgeon. He would like the patient admitted to the hospitalist. He does plan on operating tomorrow. He would like the patient on Zosyn every 8. I then discussed the case with Dr. Rehman, hospitalist. He did accept the patient for admission. Patient will be transferred to the floor shortly. He is stable. Lab Data 06/26/24 18:43 06/26/24 18:43 Radiology Impressions Chest X-Ray 06/26/24 19:12 IMPRESSION: No acute findings. Chest/Abdomen/Pelvis CTA 06/26/24 21:02 IMPRESSION: 1.4 cm calcified gallstone in the dependent gallbladder. Gallbladder demonstrates a moderately thickened gallbladder wall with moderate amount of surrounding stranding and edema. These findings are consistent with calculus cholecystitis. Laboratory Results WBC 8.23 10^3/uL (3.29-11.43) 06/26/24 18:43 RBC 5.05 10^6/uL (3.85-5.65) 06/26/24 18:43 Hgb 15.80 g/dL (11.27-16.99) 06/26/24 18:43 Hct 45.6 % (37-53) 06/26/24 18:43 MCV 90.3 fl (82-101) 06/26/24 18:43 MCH 31.3 pg (27-33) 06/26/24 18:43 MCHC 34.6 g/dL (30-55) 06/26/24 18:43 RDW 12.8 % (12.1-15.1) 06/26/24 18:43 Plt Count 99 10^3/cmm (157-399) L 06/26/24 18:43 MPV 9.5 fL (7.4-10.4) 06/26/24 18:43 Neut % (Auto) 80.8 % 06/26/24 18:43 Lymph % (Auto) 11.8 % 06/26/24 18:43 Juncos % (Auto) 6.1 % 06/26/24 18:43 Eos % (Auto) 0.9 % 06/26/24 18:43 Baso % (Auto) 0.2 % 06/26/24 18:43 Neut # (Auto) 6.65 10^3/uL (1.8-7.7) 06/26/24 18:43 Lymph # (Auto) 1.0 10^3/uL (0.8-4.8) 06/26/24 18:43 Juncos # (Auto) 0.5 10^3/uL (0.2-0.9) 06/26/24 18:43 Eos # (Auto) 0.1 10^3/uL (0.0-0.8) 06/26/24 18:43 Baso # (Auto) 0.0 10^3/uL (0.0-0.1) 06/26/24 18:43 Nucleated RBC % (auto) 0 % 06/26/24 18:43 Nucleated RBCs # 0.0 /100WBC 06/26/24 18:43 Sodium 137 mmol/L (136-145) 06/26/24 18:43 Potassium 4.8 mmol/L (3.5-5.1) 06/26/24 18:43 Chloride 101 mmol/L (98-107) 06/26/24 18:43 Carbon Dioxide 26 mmol/L (22-29) 06/26/24 18:43 Anion Gap 14.8 (5-19) 06/26/24 18:43 BUN 13 mg/dL (8-23) 06/26/24 18:43 Creatinine 1.0 mg/dL (0.7-1.2) 06/26/24 18:43 GFR Calculation Not Reportable 06/26/24 18:43 Glucose 271 mg/dL (65-115) H 06/26/24 18:43 Calculated Osmolality 294 mOsm/kg (285-295) 06/26/24 18:43 Calcium 9.6 mg/dL (8.5-10.5) 06/26/24 18:43 Total Bilirubin 1.0 mg/dL (0.15-1.2) 06/26/24 18:43 AST 19 U/L (0-40) 06/26/24 18:43 ALT 21 U/L (0-41) 06/26/24 18:43 Alkaline Phosphatase 80 U/L (40-130) 06/26/24 18:43 Troponin T Baseline 10 ng/L (0-15) 06/26/24 18:43 Troponin T 120 Minute 10.80 ng/L (0-15) 06/26/24 20:45 Delta Troponin T 0.80 ABS# (0-10) 06/26/24 20:45 Total Protein 7.0 g/dL (6.6-8.7) 06/26/24 18:43 Albumin 4.3 g/dL (3.5-5.2) 06/26/24 18:43 Globulin 2.7 g/dL (1.3-4.6) 06/26/24 18:43 Lipase 64 U/L (13-60) H 06/26/24 18:43 All radiology interpretation(s) finalized by discharge Discharge Plan Discharge Patient Disposition: Admitted As Inpatient Clinical Impression: Acute cholecystitis Condition: Stable Coding Level of Care Code ED [employer]ulic for Jude Gray
--- NOTE | 2024-06-26 22:35 | ANES.PREANE2 ---
Pre-Anesthetic Assessment Height/Weight: Height 5 ft 10 in Weight 235 lb Temp Pulse Resp BP Pulse Ox O2 Del Method 98.0 F 59 L 16 148/76 97 Room Air 06/26/24 18:25 06/26/24 18:25 06/26/24 18:25 06/26/24 18:25 06/26/24 18:06/26/24 18:25 Preop Diagnosis: Acute cholecystitis Was Beta Jj taken within 24 hours: N/A Was Clonidine taken within 24 hours: N/A Social No alcohol and No tobacco Exam alert, oriented x 3, clear to auscultation bilaterally and regular rate & rhythm Airway Submandibular: within normal limits Cervical ROM: within normal limits Mallampati: Class II Dentition: full Anesthetic Plan ASA status: 3 Anesthesia: General Other: No prior issues with anesthesia NPO since yesterday evening Patient presented 06/26/24 with acute cholecystitis Hx of HTN on amlodipine and valsartan SLE with chronic thrombocytopenia Patient was in the process of a cardiac workup outpatient due to multiple episodes of chest/back pain EKG showing SR with incomplete RBBB Stress test 06/16/24--UNABLE TO REACH THR D/T SOB Echo performed this a.m. demonstrating EF 60%. PA pressure 43 Plan for GETA Medications/Allergies Home Medications ?Medication ?Instructions ?Recorded ?Confirmed ?Last Taken ?Type amlodipine 5 mg tablet 5 mg PO DAILY 09/30/19 06/26/24 04/20/22 History atorvastatin 10 mg tablet 10 mg PO DAILY 09/30/19 06/26/24 04/20/22 History glimepiride 2 mg tablet 2 mg PO DAILY 06/18/22 06/26/24 Unknown History cetirizine 10 mg tablet (All Day 10 mg PO DAILY PRN Allergy Symptoms 09/14/22 06/26/24 Unknown History Allergy (cetirizine)) [id number]-lsp-usate acid 0.4 1 tab PO DAILY 09/14/22 06/26/24 Unknown History mg-lycopene 300 mcg-lutein 250 mcg tablet (Centrum Silver) valsartan 80 mg tablet 80 mg PO DAILY #90 tabs 04/12/23 06/26/24 Unknown Rx albuterol sulfate 90 mcg/actuation 1 inh inhalation Q6H PRN shortness 02/07/24 02/14/25 Unknown Rx aerosol inhaler of breath or wheezing #8.5 grams hydroxychloroquine 200 mg tablet 400 mg (2 x 200 mg) PO DAILY #180 01/28/24 06/26/24 Unknown Rx (Plaquenil) tabs Allergies Allergy/AdvReac Type Severity Reaction Status Date / Time No Known Allergies Allergy Verified 07/23/23 13:25 [facility] Anesthesia Medical History Transaminitis Hyperlipidemia Hypertension Osteoarthritis of knees, bilateral Immunization counseling High risk medication use Thrombocytopenia SLE (systemic lupus erythematosus) Positive RUSH (antinuclear antibody) Surgical History History of tonsillectomy Family History Other Cancer Hypertension Stroke Denies family history of Rheumatoid arthritis Systemic lupus erythematosus (SLE) in adult Social History Smoking and tobacco/nicotine status: never used tobacco/nicotine Alcohol intake: current Alcohol intake frequency: holidays/special occasions only Alcohol type: beer Substance/Drug Use: never Data Anesthesia 06/27/24 00:57 06/27/24 00:57 Short CBC 06/26/24 Range/Units 18:43 WBC 8.23 (3.29-11.43) 10^3/uL Hgb 15.80 (11.27-16.99) g/dL Hct 45.6 (37-53) % MCV 90.3 (82-101) fl Plt Count 99 L (157-399) 10^3/cmm Neut % (Auto) 80.8 % Neut # (Auto) 6.65 (1.8-7.7) 10^3/uL BMP 06/26/24 18:43 Sodium 137 Potassium 4.8 Chloride 101 Carbon Dioxide 26 BUN 13 Creatinine 1.0 Glucose 271 H Calcium 9.6 Cardiac Enzymes 06/26/24 06/26/24 Range/Units 18:43 20:45 Troponin T Baseline 10 (0-15) ng/L Troponin T 120 Minute 10.80 (0-15) ng/L Delta Troponin T 0.80 (0-10) ABS# Liver Function 06/26/24 Range/Units 18:43 Total Bilirubin 1.0 (0.15-1.2) mg/dL AST 19 (0-40) U/L ALT 21 (0-41) U/L Alkaline Phosphatase 80 (40-130) U/L Albumin 4.3 (3.5-5.2) g/dL Cardiac Studies: Echocardiogram 06/27/24
--- NOTE | 2024-06-26 22:42 | P.HP_ITS ---
Providers/Chief Complaint 2 Primary Care Provider: Magdaleno Martinez MD Chief Complaint: abd pain radiates to back,chest pain History of Present Illness Elijah Castro is a 74 year old male with a past medical history significant for systemic lupus erythematosus, thrombocytopenia, hyperlipidemia, hypertension, and moderate obstructive lung disease who presents with epigastric/chest pain x 1 day. Patient reports onset when he was sitting on his couch today. Describes the sensation as heavy and heartburn-like. He reports radiation to between shoulder blades. Endorses associated mild shortness of breath and nausea. No diaphoresis. He initially rated his pain 8 out of 10. He received analgesics in the ED and is currently pain-free. He reports this is his fourth attacks since beginning of the new year. Attacks have happened about an hour after eating. There is concern about possible cardiac etiology from his PCP for which she was referred to a stress test and echocardiogram. He is unable to complete stress test due to his shortness of breath per documentation. In the emergency department, imaging revealed 1.4 cm calcified gallstone in the dependent gallbladder with gallbladder demonstrating moderately thickened gallbladder wall with moderate amount of surrounding stranding/edema consistent with calculus cholecystitis. General surgery consulted requesting admission to hospital service. Review of Systems 2 Narrative: A complete review of systems was obtained and is negative except as stated in HPI. Medications/Allergies Home Medications ?Medication ?Instructions ?Recorded ?Confirmed ?Last Taken ?Type amlodipine 5 mg tablet 5 mg PO DAILY 09/30/1906/2604/20/22 History atorvastatin 10 mg tablet 10 mg PO DAILY 09/30/1906/1304/20/22 History glimepiride 2 mg tablet 2 mg PO DAILY 06/18/2206/26 Unknown History cetirizine 10 mg tablet (All Day 10 mg PO DAILY PRN Al lergy Symptoms 09/14/22 06/26/24 Unknown History Allergy (cetirizine)) znhuqpbf-tup-vrtbh acid 0.4 1 tab PO DAILY 09/14/22 Unknown History mg-lycopene 300 mcg-lutein 250 mcg tablet (Centrum Silver) valsartan 80 mg tablet 80 mg PO DAILY #90 tabs 12/0 06/0406/26/24 Unknown Rx albuterol sulfate 90 mcg/actuation 1 inh inhalation Q6 H PRN shortness 06/19/23 06/26/24 Unknown Rx aerosol inhaler of breath or wheezing #8.5 g gabriella hydroxychloroquine 200 mg tablet 400 mg (2 x 200 mg) P O DAILY #180 01/28/24 06/26/24 Unknown Rx (Plaquenil) tabs Allergies Allergy/AdvReac Type Severity Reaction Status Date / Time No Known Allergies Allergy Verified 07/23/23 13:25 PFSH Acute 2 PFSH: Medical History Transaminitis Hyperlipidemia Hypertension Osteoarthritis of knees, bilateral Immunization counseling High risk medication use Thrombocytopenia SLE (systemic lupus erythematosus) Positive RUSH (antinuclear antibody) Surgical History History of tonsillectomy Family History Other Cancer Hypertension Stroke Denies family history of Rheumatoid arthritis Systemic lupus erythematosus (SLE) in adult Social History Smoking and tobacco/nicotine status: never used tobacco/nicotine Alcohol intake: current Alcohol intake frequency: holidays/special occasions only Alcohol type: beer Substance/Drug Use: never Vitals/I&O/Wt Last Vital Signs Temp 98.0 F 06/26/24 18:25 Pulse 59 L 06/26/24 18:25 Resp 16 06/26/24 18:25 BP 148/76 06/26/24 18:25 Pulse Ox 97 06/26/24 18:25 O2 Del Method Room Air 06/26/24 18:25 06/26/24 06/26/24 06/26/24 06:59 14:59 22:59 Intake Total 0 / 0 Balance 0 / 0 Weight last 48 hrs Weight 106.594 kg Physical Exam 2 Narrative: General: Patient is awake and alert. Head: Normocephalic. Atraumatic. EOM intact. Neck: No JVD. Cardiovascular: RRR. No gallops. No murmurs. Lungs: Clear to auscultation, no use of accessory muscles, no crackles or wheezes. Skin: No jaundice. No rashes. Abdomen: Normal bowel sounds, abdomen slightly tender to palpation in epigastric region. Genito Urinary: Genital exam not performed since complaints not related. Rectal: Rectal exam not performed since no symptoms indicated blood loss. Extremities: No cyanosis or clubbing. Musculoskeletal: No swollen or erythematous joints. Neurological: Moves all 4 extremities. No myoclonus. Data 06/26/24 18:43 06/26/24 18:43 A&P Assessment and plan (1) Acute cholecystitis: Start Zosyn General Surgery consulted N.p.o. after midnight IV fluids after midnight Anesthesia provider consulted, discussed anesthesiologist Will request echocardiogram be performed for preop eval if possible Analgesics as needed Antiemetics as needed (2) Obstructive lung disease: Not in exacerbation Albuterol nebs as needed (3) Hyperlipidemia: Continue formulary statin (4) Hypertension: Continue valsartan and Norvasc (5) Thrombocytopenia: Chronic thrombocytopenia Platelets 99, monitor (6) SLE (systemic lupus erythematosus): Continue Plaquenil Qualifiers: Systemic lupus erythematosus type: other Systemic lupus erythematosus organ involvement: other Qualified Code(s): M32.19 - Other organ or system involvement in systemic lupus erythematosus Plan DVT prophylaxis: SCD PDMP PDMP Reviewed: Not Reviewed Attestations 2 Medical Necessity Statement*: Patient presents with epigastric pain, found to have acute cholecystitis with expected hospitalization not to cross 2 midnights for IV antibiotics and surgical evaluation. Coding Level of Care Code Acute Code for [facility] Diagnoses Acute cholecystitis K81.0 Obstructive lung disease J44.9 Hyperlipidemia E78.5 Hypertension I10 Thrombocytopenia D69.6 Other systemic lupus erythematosus with other organ involvement M32.19 Systemic lupus erythematosus type: other Systemic lupus erythematosus organ involvement: other
[2024-06-27] VITALS (29 sets, daily range): BP systolic 89–163; BP diastolic 45–100; PULSE 57–88; RESP 13–22; TEMP 36.2–37.6; O2SAT 90–97
[2024-06-27] MEDS: sodium chloride 0.9% 1,000 ML 75 ML IV ×2 (00:12→15:00)
--- NOTE | 2024-06-27 01:12 | ECG_ITS ---
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: : 1950 Requested By: Otto France Order Number: [id number] Lorie MD: HEBER GARCIA Measurements Intervals [place] Rate: 59 P: 67 NV: 183 QRS: -9 QRSD: 109 T: 93 QT: 429 QTc: 425 Interpretive Statements SINUS BRADYCARDIA INCOMPLETE RIGHT BUNDLE BRANCH BLOCK [90+ ms QRS DURATION, TERMINAL R IN V1/V2, 40+ ms S IN I/aVL/V4/V5/V6] MODERATE VOLTAGE CRITERIA FOR LVH, CONSIDER NORMAL VARIANT [MEETS CRITERIA IN ONE OF: R(aVL), S(V1), R(V5), R(V5/V6)+S(V1)] POSSIBLE SEPTAL MYOCARDIAL INFARCTION , OF INDETERMINATE AGE [30 ms Q WAVE IN V1/V2] Compared to ECG 06/26/2024 20:02:03 Sinus rhythm no longer present Myocardial infarct finding still present Electronically Signed On 06-27-2024 19:32:22 SUBJECT SCIENTIFIC RESEARCH by HEBER GARCIA [email or web address]
[2024-06-27 01:31] LABS: Basophils % 0.1 %; Eosinophils % 0.1 %; Hematocrit 41.7 % (37-53); Lymphocytes % 14.1 %; Mean Corpuscular HGB Conc 34.5 g/dL (30-55); Mean Corpuscular Hemoglobin 31.4 pg (27-33); Mean Corpuscular Volume 90.8 fl (82-101); Mean Platelet Volume 9.5 fL (7.4-10.4); Monocytes # 0.6 10^3/uL (0.2-0.9); Neutrophils # 5.69 10^3/uL (1.8-7.7); Neutrophils % 77.4 %; Nucleated Red Blood Cells % 0 %; Platelet Count 106 10^3/cmm (157-399); Red Blood Count 4.59 10^6/uL (3.85-5.65); Red Cell Distribution Width 12.8 % (12.1-15.1); White Blood Count 7.36 10^3/uL (3.29-11.43)
[2024-06-27 01:39] LABS: Alanine Aminotransferase 17 U/L (0-41); Albumin Level 3.8 g/dL (3.5-5.2); Alkaline Phosphatase 68 U/L (40-130); Anion Gap 16.6 (5-19); Aspartate Amino Transferase 17 U/L (0-40); Blood Urea Nitrogen 13 mg/dL (8-23); Carbon Dioxide 23 mmol/L (22-29); Chloride 102 mmol/L (98-107); Creatinine Clr Calc Pharmacy 79.1403; Globulin 2.4 g/dL (1.3-4.6); Glucose 219 mg/dL (65-115); Magnesium 2.1 mg/dL (1.7-2.3); Osmolality Calculated 291 mOsm/kg (285-295); Phosphorus 3.2 mg/dL (2.5-4.5); Potassium 4.6 mmol/L (3.5-5.1); Sodium 137 mmol/L (136-145); Total Protein 6.2 g/dL (6.6-8.7)
[2024-06-27 01:41] LABS: Troponin 5 6HR 11.64 ng/L (0-15); Troponin 5 6HR Delta 1.64 ng/L (0-12)
[2024-06-27 06:27] LABS: Glucose Point of Care 156 mg/dL (70-110)
--- NOTE | 2024-06-27 08:31 | PM.CONSULT ---
Providers/Reason For Consult Consulting Physician/Specialty*: dr. chawla gen surg Reason for Consult*: cholecystitis Attending Physician: Cheko Rehman MD Primary Care Provider: Magdaleno Martinez MD History of Present Illness History of Present Illness Elijah Castro is a 74 year old male who presents with acute cholecystitis. Multiple comorbidities including pulmonary fibrosis. Recent stress test was not completed due to SOB. Echo today reviewed by anesthesiologist who deems it safe to proceed with surgery. Medications/Allergies Home Medications ?Medication ?Instructions ?Recorded ?Confirmed ?Last Taken ?Type amlodipine 5 mg tablet 5 mg PO DAILY 09/30/19 06/26/24 04/20/22 History atorvastatin 10 mg tablet 10 mg PO DAILY 09/30/19 06/26/24 04/20/22 History glimepiride 2 mg tablet 2 mg PO DAILY 06/18/22 06/26/24 Unknown History cetirizine 10 mg tablet (All Day 10 mg PO DAILY PRN Allergy Symptoms 09/14/22 06/26/24 Unknown History Allergy (cetirizine)) novbuckr-zdr-ehftr acid 0.4 1 tab PO DAILY 09/14/22 06/26/24 Unknown History mg-lycopene 300 mcg-lutein 250 mcg tablet (Centrum Silver) valsartan 80 mg tablet 80 mg PO DAILY #90 tabs 04/12/23 06/26/24 Unknown Rx albuterol sulfate 90 mcg/actuation 1 inh inhalation Q6H PRN shortness 06/19/23 06/26/24 Unknown Rx aerosol inhaler of breath or wheezing #8.5 grams hydroxychloroquine 200 mg tablet 400 mg (2 x 200 mg) PO DAILY #180 01/28/24 06/26/24 Unknown Rx (Plaquenil) tabs Allergies Allergy/AdvReac Type Severity Reaction Status Date / Time No Known Allergies Allergy Verified 07/23/23 13:25 Current Medications Generic Name Dose Route Start Last Admin Trade Name Freq PRN Reason Stop Dose Admin Sodium Chloride 1,000 mls @ 75 mls/hr 06/26/24 23:45 06/27/24 00:12 Sodium Chloride 0.9% IV 75 mls/hr .[id number] SHAHRIAR Administration PFSH Acute PFSH: Medical History Transaminitis Hyperlipidemia Hypertension Osteoarthritis of knees, bilateral Immunization counseling High risk medication use Thrombocytopenia SLE (systemic lupus erythematosus) Positive RUSH (antinuclear antibody) Surgical History History of tonsillectomy Family History Other Cancer Hypertension Stroke Denies family history of Rheumatoid arthritis Systemic lupus erythematosus (SLE) in adult Social History Smoking and tobacco/nicotine status: never used tobacco/nicotine Alcohol intake: current Alcohol intake frequency: holidays/special occasions only Alcohol type: beer Substance/Drug Use: never Vitals/I&O/Wt Last Vital Signs Temp 98.2 F 06/27/24 04:00 Pulse 58 L 06/27/24 04:00 Resp 17 06/27/24 04:00 BP 130/89 06/27/24 04:00 Pulse Ox 95 06/27/24 04:00 O2 Del Method Room Air 06/27/24 04:00 06/26/24 06/27/24 06/27/24 22:59 06:59 14:59 Intake Total 0 / 0 1000 / 1000 Output Total 250 / 250 Balance 0 / 0 750 / 750 Weight last 48 hrs Weight 228 lb 1.6 oz Weight 220 lb 7 oz Weight 235 lb Physical Exam Narrative: RRR Unlabored breathing RA Abdomen soft, TTP RUQ, non distended Data 06/27/24 00:57 06/27/24 00:57 A&P Assessment and plan (1) Acute cholecystitis: Plan 74yo male who presented with acute cholecystitis. Echo OK to proceed from anesthesia perspective. Discussed risks and benefits and patient agrees to proceed with lap maría elena possible open. PDMP PDMP Reviewed: Not Reviewed Coding Level of Care Code 21039 Diagnoses Acute cholecystitis K81.0 Time Spent (min) 30
--- NOTE | 2024-06-27 09:48 | W.PM.OPSUD ---
Surgery/Procedure H&P Update DATE OF PROCEDURE: June 27, 2024 DATE H&P PERFORMED: 06/27/24 H&P UPDATE INFORMATION: I have reviewed H&P completed within last 30 days, I have examined patient prior to procedure and No changes to prior documentation PLANNED PROCEDURE: Operation Date: 06/27/24 10:10 Proposed Procedures p Laparoscopic Cholecystectomy(Not Applicable) - Russ Ball MD
[2024-06-27] MEDS: piperacillin-tazobactam 3.375 GM in sodium chloride 0.9% (plus) 50 ML IV ×2 (09:51→17:35)
[2024-06-27] MEDS: lidocaine-epi 1% PF 1:200,000 30 mL SDV INJECTION (10:06)
--- NOTE | 2024-06-27 10:18 | PC.CHAP ---
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 [] Patient/Family/Request visit [] Outpatient visit [] Follow-up visit [] Physician referral [] Code/Alert [X] Routine visit [] Staff referral [] Actively dying [] Patient sleeping [] Family support [] [] Out of room [] Palliative care [] [] Receiving care in room [] Pre-surgical visit [] Trauma [] Long length of stay [] ICU visit [] Other: Relational/Emotional Strength [] Patient feels connected with others/family/visitors/staff [] Distress [] Loneliness/isolation [] Abandonment Spirituality of Patient [] Person of Christina [] Attends Confucianism of their Christina [] Believes in Prayer [] Reads Bible or Scientology materials [] There are Spiritual issues to be addressed Cassandra Architect Interventions [] Prayer [] Active listening [] Non-anxious presence [] Spiritual/emotional support [] Crisis/trauma care [] Spiritual counseling [] Bereavement support [] Provided bereavement packet [] Provided Bible/devotional materials [] Provided toy/stuffed animal, coloring book to patient or family member [] Provided Communion [] Anointing/[place] [] Salvation [] Completed spiritual assessment [] Other: Impact on Illness or Injury [] Angry [] Fearful [] Anxious [] Often cries [] Exhaustion [] Unable to work [] Unable to attend temple [] Unable to walk/stand [] Unable to read [] Unable to drive [] Unable to eat/drink [] Unable to sleep [] Unable to be with family [] Patient intubated [] Other: Summary Time spent with patient
--- NOTE | 2024-06-27 11:39 | PM.OP ---
Operative Report Date of procedure: June 27, 2024 Pre-op diagnosis: acute cholecystitis Post-op diagnosis: chronic cholecystitis Post-op findings: Chronically inflammed gallbladder. Inflammatory rind present. Gallbladder covered by omentum and adhered to gallbladder. Gallbladder filled with stones and atropic. Technically challenging operation given disrupted anatomy secondary to inflammatory changes. Procedure done: Laparoscopic cholecystectomy converted to open cholecystectomy. Implants: NA Specimens removed/disposition: Gallbladder Pathology: Gallbladder and stones sent to pathology Surgeon: Russ Ball MD Screwhead Polisher: MARY Anesthesia: General Estimated blood loss (mL): 50 Complications: NA Findings: Chronically inflammed gallbladder. Inflammatory rind present. Gallbladder covered by omentum and adhered to gallbladder. Gallbladder filled with stones and atropic. Technically challenging operation given disrupted anatomy secondary to inflammatory changes. Condition: stable Disposition: floor Brief History: 74-year-old male who presented with acute cholecystitis. Discussed risk and benefits and patient agreed to proceed with laparoscopic cholecystectomy possible open. Procedure: I discussed the risks and benefits of laparoscopic cholecystectomy possible open, and obtained consent prior to proceeding to the operating room. SCDs were utilized. Prophylactic antibiotics were administered. General anesthesia was induced. The patient was placed supine, and he was prepped and draped in the usual sterile fashion. Insufflation to 15mmHg was achieved using a Veress needle at Shankar's point. A 12mm optiview trocar was placed at the umbilicus under direct visualization. The left upper quadrant was inspected, and no injuries were noted. Patient was placed in reverse Trendelenburg and rotated to the left. One 5mm port was placed in the right upper quadrant, and a 11mm working port was placed in the epigastrium. I inspected the right upper quadrant and immediately noticed that the gallbladder was atrophic and almost completely covered by omentum. Using blunt dissection, I peelled off the omentum and noticed that the galbladder had an inflammatory rind and was adhered to the duodenum. At this point, I proceeded to convert to an open cholecystectomy since it was no longer safe to continue the dissection laparoscopically. Abdomen was desufflated, and a 12cm subcostal incision was carried out. Electrocautery was used to dissect down to the posterior fascia. The abdomen was entered with scissors. The gallbladder fundus was grasped using a curved 6. I then proceeded to dissect the gallbladder off the duodenum by making multiple small windows with a right-angle, and transecting the tissue with electrocautery. Once the gallbladder was dissected off the duodenum, I proceeded to dissect off the gallbladder from the gallbladder fossa. Once the gallbladder was completely dissected, I used laparoscopic stapler and fired a blue load at the level of the infundibulum. The specimen was passed off and sent to pathology togetheter with stones. The gallbladder fossa was irrigated with 1L of normal saline and the liver bed was cauterized. I confirmed adequate hemostasis and I did not evidence any bile leaks. I did apply Geovanni to the gallbladder fossa. I examined the abdomen and found that the duodenum and colon were intact. The posterior and anterior fascial layers were closed using looped 0 PDS. Several interrupted deep dermal 3-0 vicryl stitches were placed, and the epidermis was closed using 4-0 monocryl. The skin was infiltrated using 10cc of 1% lidocaine with epinephrine. Glue was applied at the skin level. The patient woke up from anesthesia without any complications. Transferred to PACU.
[2024-06-27] MEDS: oxyCODONE 5 mg IR Tab/Cap PO ×2 (16:34→20:50)
--- NOTE | 2024-06-27 17:16 | PM.PN ---
Subjective Subjective: Patient noted shoulder pain and abdominal pain following an open cholecystectomy. The patient underwent a laparoscopic cholecystectomy that was converted to an open procedure due to a chronically inflamed gallbladder covered by omentum and filled with stones. The patient describes feeling a little bit sore in the abdominal area post-operatively. Associated symptoms include shoulder pain, which can be referred pain from the gallbladder surgery. The patient denies any issues with moving their hand. Vitals/I&O/Wt Last Vital Signs Temp 97.8 F 06/27/24 12:50 Pulse 67 06/27/24 12:50 Resp 18 06/27/24 16:34 BP 115/62 06/27/24 12:50 Pulse Ox 93 06/27/24 12:50 O2 Del Method Nasal Cannula 06/27/24 12:50 O2 Flow Rate 3 06/27/24 12:50 06/27/24 06/27/24 06/27/24 06:59 14:59 22:59 Intake Total 1000 / 1000 1650 / 1650 Output Total 250 / 250 150 / 150 Balance 750 / 750 1500 / 1500 Weight last 48 hrs Weight 103.464 kg Weight 99.989 kg Weight 106.594 kg Physical Exam Narrative: General: Patient is awake and alert. Head: Normocephalic. Atraumatic. EOM intact. Neck: No JVD. Cardiovascular: RRR. No gallops. No murmurs. Lungs: Clear to auscultation, no use of accessory muscles, no crackles or wheezes. Skin: No jaundice. No rashes. Abdomen: Post op surgical dressing in place. Non-distended Musculoskeletal: No swollen or erythematous joints. Neurological: Moves all 4 extremities. No myoclonus. Data 06/27/24 00:57 06/27/24 00:57 A&P Assessment and plan (1) Acute cholecystitis: (2) Obstructive lung disease: (3) Hyperlipidemia: (4) Hypertension: (5) Thrombocytopenia: (6) SLE (systemic lupus erythematosus): Qualifiers: Systemic lupus erythematosus type: other Systemic lupus erythematosus organ involvement: other Qualified Code(s): M32.19 - Other organ or system involvement in systemic lupus erythematosus Plan Acute cholecystiits s/p Open Cholecystectomy - Status post laparoscopic cholecystectomy converted to open procedure due to chronically inflamed gallbladder with omental adhesions and cholelithiasis. Plan: Continue pain control postop. Did discuss with surgery regarding IV antibiotics. Continue pain control. Advance diet as per surgery. Repeat labs in a.m.. Systemic Lupus Erythematosus Hypertension Hyperlipidemia Chronic Obstructive Pulmonary Disease (COPD) Chronic Thrombocytopeniars. Obstructive Sleep Apnea ( Noncompliant with CPAP) Plan: Continues current medications as ordered. PDMP PDMP Reviewed: Not Reviewed Attestations Medical Necessity Statement*: Patient presents with epigastric pain, found to have acute cholecystitis with expected hospitalization not to cross 2 midnights for IV antibiotics and surgical evaluation. Coding Level of Care Code Acute Code for [facility] Diagnoses Acute cholecystitis K81.0 Obstructive lung disease J44.9 Hyperlipidemia E78.5 Hypertension I10 Thrombocytopenia D69.6 Other systemic lupus erythematosus with other organ involvement M32.19 Systemic lupus erythematosus type: other Systemic lupus erythematosus organ involvement: other
[2024-06-27] MEDS: insulin lispro 100 unit/1 mL SUBCUT ×2 (17:35→20:50)
[2024-06-27 17:44] LABS: Glucose Point of Care 257 mg/dL (70-110)
[2024-06-27] MEDS: HYDROcodone-acetaminophen 5-325 mg Tablet 1 TAB PO ×2 (19:36→23:39)
[2024-06-27 20:57] LABS: Glucose Point of Care 350 mg/dL (70-110)
--- NOTE | 2024-06-27 23:01 | USCV_ITS ---
Elijah Castro Age: 74 Gender: M : 1950 Exam Date: 06/27/2024 08:42 Ordering Phys: Cheko Rehman MD Technologist: Sourav Rivera Exam Location: [facility] [place] Indication: pre op BP: 130 / 89 HR: 56 Rhythm: Sinus Technical Quality: MEASUREMENTS (Male / Female) Normal Values 2D ECHO LV Diastolic Diameter PLAX 4.1 cm 4.2 - 5.9 / 3.9 - 5.3 cm IVS Diastolic Thickness 1.2 cm 0.6 - 1.0 / 0.6 - 0.9 cm IVS Systolic Thickness 1.4 cm LVPW Diastolic Thickness 1.2 cm 0.6 - 1.0 / 0.6 - 0.9 cm LVPW Systolic Thickness 1.9 cm LVOT Diameter 2.0 cm LV Ejection Fraction 2D Teich 70.8 % LV Ejection Fraction MOD 4C 58.6 % LV Ejection Fraction MOD 2C 61.2 % LV Ejection Fraction 2C AL 59.7 % LA Diameter 3.0 cm RA Systolic Volume 4C AL 25.5 ml RA Systolic Volume 4C MOD 24.7 ml LA Sys Volume AL 47.1 cm cubed LA Sys Volume Index AL 20.5 cm cubed/m squared Aorta at Sinotubular Diameter 2.2 cm IVC Diameter 1.7 cm M-MODE LA Ao Ratio MM 1.4 AV Cusp Separation MM 2.0 cm DOPPLER AV Peak Velocity 121.0 cm/s LVOT Peak Velocity 89.0 cm/s AV Area Cont Eq vti 3.0 cm squared AV Area Cont Eq pk 2.3 cm squared MV Peak Velocity 100.0 cm/s MV Area PHT 3.9 cm squared Mitral E to A Ratio 0.8 TV Peak Velocity 303.0 cm/s TR Peak Velocity 383.0 cm/s TR Peak Gradient 58.7 mmHg TR Mean Velocity 304.0 cm/s TR Mean Gradient 39.7 mmHg TR Velocity Time Integral 113.6 cm PV Peak Velocity 85.0 cm/s RV Ejection Time 0.3 s FINDINGS Left Ventricle Normal left ventricular size and systolic function, EF 60%. Mild left ventricular hypertrophy. Grade I/IV diastolic dysfunction (abnormal relaxation filling pattern), normal to mildly elevated filling pressures. Right Ventricle The right ventricle is normal in size and function. Right Atrium The right atrium is normal in size. Left Atrium The left atrium is normal in size. Mitral Valve Trace mitral valve regurgitation. Aortic Valve Minimally thickened aortic valve Tricuspid Valve Trace tricuspid valve regurgitation. Estimated pulmonary artery peak systolic pressure 43 mm of Hg. Pulmonic Valve No gross abnormalities noted Pericardium No pericardial effusion. Aorta Normal aortic annulus size. IVC The inferior vena cava appears normal. CONCLUSIONS Normal left ventricular size and systolic function, EF 60%. Mild left ventricular hypertrophy. Grade I/IV diastolic dysfunction (abnormal relaxation filling pattern), normal to mildly elevated filling pressures. Trace tricuspid valve regurgitation. Estimated pulmonary artery peak systolic pressure 43 mm of Hg. Trace mitral valve regurgitation. Minimally thickened aortic valve. There is no pericardial effusion. There are no intracardiac masses. Compared to the study from 04/08/2015, patient appears to have mild pulmonary hypertension. Otherwise unremarkable Dr Naga Asher MD FAC (Electronically Signed) Final Date: 27 June 2024 09:36 S
[2024-06-28] VITALS (12 sets, daily range): BP systolic 114–165; BP diastolic 69–89; PULSE 65–88; RESP 16–22; TEMP 36.8–37.5; O2SAT 90–93
[2024-06-28] MEDS: oxyCODONE 5 mg IR Tab/Cap PO ×4 (00:50→20:27)
[2024-06-28] MEDS: piperacillin-tazobactam 3.375 GM in sodium chloride 0.9% (plus) 50 ML IV ×3 (01:02→18:05)
[2024-06-28] MEDS: HYDROcodone-acetaminophen 5-325 mg Tablet 1 TAB PO ×4 (03:44→23:40)
[2024-06-28 03:52] LABS: Glucose Point of Care 225 mg/dL (70-110)
[2024-06-28] MEDS: sodium chloride 0.9% 1,000 ML 75 ML IV (04:50)
[2024-06-28 05:45] LABS: Hematocrit 39.8 % (37-53); Lymphocytes # 0.9 10^3/uL (0.8-4.8); Mean Corpuscular HGB Conc 33.4 g/dL (30-55); Mean Corpuscular Hemoglobin 31.4 pg (27-33); Mean Corpuscular Volume 93.9 fl (82-101); Mean Platelet Volume 9.8 fL (7.4-10.4); Monocytes # 1.3 10^3/uL (0.2-0.9); Monocytes % 13.1 %; Neutrophils # 7.87 10^3/uL (1.8-7.7); Neutrophils % 77.4 %; Nucleated Red Blood Cells % 0 %; Platelet Count 103 10^3/cmm (157-399); Red Blood Count 4.24 10^6/uL (3.85-5.65); Red Cell Distribution Width 13.3 % (12.1-15.1); White Blood Count 10.16 10^3/uL (3.29-11.43)
[2024-06-28 05:51] LABS: Alanine Aminotransferase 30 U/L (0-41); Albumin Level 3.6 g/dL (3.5-5.2); Alkaline Phosphatase 56 U/L (40-130); Anion Gap 15.4 (5-19); Aspartate Amino Transferase 34 U/L (0-40); Blood Urea Nitrogen 20 mg/dL (8-23); Calcium 8.7 mg/dL (8.5-10.5); Carbon Dioxide 23 mmol/L (22-29); Chloride 103 mmol/L (98-107); Globulin 2.6 g/dL (1.3-4.6); Glucose 218 mg/dL (65-115); Osmolality Calculated 293 mOsm/kg (285-295); Potassium 4.4 mmol/L (3.5-5.1); Sodium 137 mmol/L (136-145); Total Bilirubin 1.5 mg/dL (0.15-1.2); Total Protein 6.2 g/dL (6.6-8.7)
[2024-06-28 06:31] LABS: Glucose Point of Care 207 mg/dL (70-110)
--- NOTE | 2024-06-28 09:02 | P.PN_ITS ---
Subjective 2 Subjective: Tolerating regular diet Passing gas Abdomen soft and benign Incision is clean dry intact LFTs within normal limits Vitals/I&O/Wt Last Vital Signs Temp 98.3 F 06/28/24 08:00 Pulse 66 06/28/24 08:00 Resp 18 06/28/24 08:00 BP 134/78 06/28/24 08:00 Pulse Ox 93 06/28/24 08:00 O2 Del Method Nasal Cannula 06/28/24 08:00 O2 Flow Rate 3 06/27/24 12:50 06/27/24 06/28/24 06/28/24 22:59 06:59 14:59 Intake Total 770 / 2420 1050 / 3470 240 / 240 Output Total 250 / 400 Balance 520 / 2020 1050 / 3070 240 / 240 Weight last 48 hrs Weight 229 lb 6.4 oz Weight 228 lb 1.6 oz Weight 220 lb 7 oz Weight 235 lb Physical Exam 2 Narrative: Chest: Unlabored breathing room air. No lymphadenopathy. Heart: Regular rate and rhythm. Abdomen: Soft, appropriately tender, mildly distended. No masses or lymphadenopathy. Incision clean dry intact Data 06/28/24 04:05 06/28/24 04:05 A&P Assessment and plan (1) Acute cholecystitis: Plan 74-year-old male status post open cholecystectomy. Tolerating regular diet. Labs okay. Okay for discharge. Discussed with hospitalist. PDMP PDMP Reviewed: Last Reviewed 06/28/24 11:21 EST by Russ Ball MD Attestations 2 Medical Necessity Statement*: N/A Coding Level of Care Code 36757 Diagnoses Acute cholecystitis K81.0 Time Spent (min) 30
[2024-06-28] MEDS: losartan 50 mg Tablet 25 MG PO (09:21)
[2024-06-28] MEDS: atorvastatin 40 mg Tablet 10 MG PO (09:22)
[2024-06-28] MEDS: hydroxychloroquine 200 mg Tablet 400 MG PO (09:22)
[2024-06-28] MEDS: insulin lispro 100 unit/1 mL SUBCUT ×4 (09:23→21:01)
[2024-06-28] MEDS: amlodipine 5 mg Tablet PO (09:23)
[2024-06-28 11:46] LABS: Glucose Point of Care 144 mg/dL (70-110)
[2024-06-28] MEDS: albuterol 2.5 mg/3 mL Neb INHALATION ×2 (12:34→21:16)
[2024-06-28 16:24] LABS: Glucose Point of Care 187 mg/dL (70-110)
--- NOTE | 2024-06-28 16:35 | P.PN_ITS ---
Subjective 2 Subjective: Patient noted abdominal soreness however controlled with pain meds. Denied respiratory distress however was still on oxygen. No chest pain. Denied any prior history of respiratory issues. was not using incentive spirometer Vitals/I&O/Wt Last Vital Signs Temp 99.2 F 06/28/24 12:00 Pulse 86 06/28/24 12:34 Resp 16 06/28/24 12:34 BP 147/78 06/28/24 12:00 Pulse Ox 93 06/28/24 12:34 O2 Del Method Nasal Cannula 06/28/24 12:34 O2 Flow Rate 2 06/28/24 12:34 06/28/24 06/28/24 06/28/24 06:59 14:59 22:59 Intake Total 1050 / 3470 1185 / 1185 Balance 1050 / 3070 1185 / 1185 Weight last 48 hrs Weight 104.054 kg Weight 103.464 kg Weight 99.989 kg Weight 106.594 kg Physical Exam 2 Narrative: General: Patient is awake and alert. on Head: Normocephalic. Atraumatic. EOM intact. Neck: No JVD. Cardiovascular: RRR. No gallops. No murmurs. Lungs: Clear to auscultation, no use of accessory muscles, no crackles or wheezes. Skin: No jaundice. No rashes. Abdomen: Post op surgical dressing in place. Non-distended Musculoskeletal: No swollen or erythematous joints. Neurological: Moves all 4 extremities. No myoclonus. Data 06/28/24 04:05 06/28/24 04:05 A&P Assessment and plan (1) Acute cholecystitis: (2) Obstructive lung disease: (3) Hyperlipidemia: (4) Hypertension: (5) Thrombocytopenia: (6) SLE (systemic lupus erythematosus): Qualifiers: Systemic lupus erythematosus organ involvement: other Systemic lupus erythematosus type: other Qualified Code(s): M32.19 - Other organ or system involvement in systemic lupus erythematosus Plan Hypoxia - Required post op - Possibly due to atelectasis - Obtain chest xray in am - Wean oxygen as tolerated - Incentive spirometer Acute cholecystiits s/p Open Cholecystectomy - Status post laparoscopic cholecystectomy converted to open procedure due to chronically inflamed gallbladder with omental adhesions and cholelithiasis. - Mangement per surgery - ok to d/c from surgery standpoint. Systemic Lupus Erythematosus Hypertension Hyperlipidemia Chronic Obstructive Pulmonary Disease (COPD) Chronic Thrombocytopeniars. Obstructive Sleep Apnea ( Noncompliant with CPAP) PDMP PDMP Reviewed: Not Reviewed Attestations 2 Medical Necessity Statement*: Patient presents with epigastric pain, found to have acute cholecystitis with expected hospitalization not to cross 2 midnights for IV antibiotics and surgical evaluation. Coding Level of Care Code Acute Code for [facility] Diagnoses Acute cholecystitis K81.0 Obstructive lung disease J44.9 Hyperlipidemia E78.5 Hypertension I10 Thrombocytopenia D69.6 Other systemic lupus erythematosus with other organ involvement M32.19 Systemic lupus erythematosus organ involvement: other Systemic lupus erythematosus type: other
[2024-06-28 20:48] LABS: Glucose Point of Care 217 mg/dL (70-110)
--- NOTE | 2024-06-28 23:43 | XRR_ITS ---
PROCEDURE INFORMATION: Exam: XR Chest Exam date and time: 06/28/2024 11:56 PM Age: 74 years old Clinical indication: Shortness of breath and wheezing; Prior surgery; Surgery date: Post-operative (0-2 days); Surgery type: Gb 06/27/2024; SOB with wheezing; Additional info: SOB, audible wheezing TECHNIQUE: Imaging protocol: Radiologic exam of the chest. Views: 1 view. COMPARISON: CT ang ches abdpel [id number] 06/26/2024 9:27 PM FINDINGS: Lungs: Expiratory. Unremarkable. No consolidation. Pleural spaces: Unremarkable. No pleural effusion. No pneumothorax. Heart/Mediastinum: Unremarkable. No cardiomegaly. Bones/joints: Unremarkable. XR/XR chest 1V portable [id number] IMPRESSION: No acute findings.
[2024-06-29] VITALS (8 sets, daily range): BP systolic 123–169; BP diastolic 70–78; PULSE 76–88; RESP 16–20; TEMP 37.2–37.8; O2SAT 92–94
[2024-06-29] MEDS: hyDRALAzine 20 mg/mL INJ 1 mL 10 MG IVP (00:08)
[2024-06-29] MEDS: oxyCODONE 5 mg IR Tab/Cap PO (03:51)
[2024-06-29] MEDS: acetaminophen 325 mg Tablet 650 MG PO (03:53)
[2024-06-29 06:23] LABS: Basophils % 0.1 %; Eosinophils % 0.3 %; Lymphocytes # 1.4 10^3/uL (0.8-4.8); Lymphocytes % 18.5 %; Mean Corpuscular HGB Conc 34.1 g/dL (30-55); Mean Corpuscular Volume 93.9 fl (82-101); Mean Platelet Volume 9.3 fL (7.4-10.4); Monocytes # 0.9 10^3/uL (0.2-0.9); Monocytes % 12.1 %; Neutrophils # 5.27 10^3/uL (1.8-7.7); Neutrophils % 68.6 %; Nucleated Red Blood Cells % 0 %; Platelet Count 88 10^3/cmm (157-399); Red Blood Count 3.94 10^6/uL (3.85-5.65); Red Cell Distribution Width 13.3 % (12.1-15.1); White Blood Count 7.68 10^3/uL (3.29-11.43)
[2024-06-29 06:42] LABS: Alanine Aminotransferase 26 U/L (0-41); Albumin Level 3.3 g/dL (3.5-5.2); Alkaline Phosphatase 54 U/L (40-130); Anion Gap 16.1 (5-19); Aspartate Amino Transferase 36 U/L (0-40); Blood Urea Nitrogen 19 mg/dL (8-23); Carbon Dioxide 20 mmol/L (22-29); Chloride 101 mmol/L (98-107); Creatinine Clr Calc Pharmacy 73.9181; Glucose 193 mg/dL (65-115); Osmolality Calculated 284 mOsm/kg (285-295); Potassium 4.1 mmol/L (3.5-5.1); Sodium 133 mmol/L (136-145); Total Bilirubin 2.4 mg/dL (0.15-1.2); Total Protein 6.3 g/dL (6.6-8.7)
[2024-06-29 06:47] LABS: Glucose Point of Care 183 mg/dL (70-110)
--- NOTE | 2024-06-29 08:08 | P.PN_ITS ---
Subjective 2 Subjective: Noticed TB 1-1.5-2.4. Rest of LFTs WNL. Tolerating regular diet 1L NC Pain under control Vitals/I&O/Wt Last Vital Signs Temp 100.1 F H 06/29/24 07:41 Pulse 76 06/29/24 07:41 Resp 18 06/29/24 07:41 BP 123/74 06/29/24 07:41 Pulse Ox 93 06/29/24 07:41 O2 Del Method Nasal Cannula 06/29/24 07:41 O2 Flow Rate 2 06/28/24 21:17 06/28/24 06/29/24 06/29/24 22:59 06:59 14:59 Intake Total 600 / 1785 450 / 2235 Output Total 630 / 630 825 / 1455 Balance -30 / 1155 -375 / 780 Weight last 48 hrs Weight 233 lb 1.6 oz Weight 229 lb 6.4 oz Physical Exam 2 Narrative: RRR Unlabored breathing RA Abdomen soft, appropriately tender, mildly distended. Incision clean, dry, intact Data 06/29/24 06:13 06/29/24 06:13 A&P Assessment and plan (1) Chronic cholecystitis: Plan 74yo male who presented with chronic cholecystitis. Doing well, however stayed overnight due to O2 requirement. Noticed isolated hyperbilirubinemia. Suspect retained stone in CBD. Will order MRCP. PDMP PDMP Reviewed: Last Reviewed 06/28/24 11:21 EST by Russ Ball MD Attestations 2 Medical Necessity Statement*: NA Coding Level of Care Code 16647 Diagnoses Chronic cholecystitis K81.1 Time Spent (min) 30
[2024-06-29] MEDS: albuterol 2.5 mg/3 mL Neb INHALATION (08:11)
--- NOTE | 2024-06-29 08:11 | MR_ITS ---
WS: [id number] MRI/MRCP OF THE ABDOMEN WITHOUT GADOLINIUM ENHANCEMENT TECHNIQUE: Coronal T2 Fase BH, Axial T2 Fase BH, Axial T2 FS BH, Zxial 3D West BH, Axial DWI BH, 2D MRCP Radial BH, 3D MRCP (Resp), and Axial 3D Dyn BH Post sequences. CLINICAL INFORMATION: R/o retained stone, increasing bili s/p open cholecystectomy FINDINGS: Limited examination due to respiratory artifact on the breath-hold imaging. Patient difficult difficulty holding breath Recent postoperative changes cholecystectomy. Expected postoperative changes in the gallbladder fossa. No visualized drainable fluid collections. Small RIGHT and tiny LEFT pleural effusions. Bibasilar atelectasis. Normal postoperative changes along the RIGHT anterior abdominal wall. Common bile duct appears normal. No visualized choledocholithiasis. Normal pancreatic duct. Small renal cysts. Perinephric edema can be seen with renal insufficiency. Adrenal glands are normal. Normal caliber upper abdominal aorta. Celiac and SMA appear patent. Proximal renal arteries appear patent. Tiny esophageal hiatal hernia. Mild fatty atrophy of the pancreas. MR/MR MRCP [id number] Impression: Limited examination due to respiratory artifact on the breath-hold images 1. Interval cholecystectomy. No drainable fluid collections. 2. Common bile duct appears patent. No evidence of choledocholithiasis. 3. If continued concern for obstruction, recommend ERCP in further evaluation due to scan limitations.
[2024-06-29] MEDS: HYDROcodone-acetaminophen 5-325 mg Tablet 1 TAB PO (08:15)
[2024-06-29] MEDS: hydroxychloroquine 200 mg Tablet 400 MG PO (08:15)
[2024-06-29] MEDS: insulin lispro 100 unit/1 mL SUBCUT ×2 (08:15→12:10)
[2024-06-29] MEDS: amlodipine 5 mg Tablet PO (08:15)
[2024-06-29] MEDS: losartan 50 mg Tablet 25 MG PO (08:16)
[2024-06-29] MEDS: atorvastatin 40 mg Tablet 10 MG PO (08:16)
--- NOTE | 2024-06-29 09:00 | PC.CHAP ---
Pastoral Care Encounter/Spiritual Assessment Type of Contact [] Declined patient insurance clerk visit [] Patient/Family/Request visit [] Outpatient visit [] Follow-up visit [] Physician referral [] Code/Alert [x] Routine visit [] Staff referral [] Actively dying [] Patient sleeping [] Family support [] [] Out of room [] Palliative care [] [] Receiving care in room [] Pre-surgical visit [] Trauma [] Long length of stay [] ICU visit [] Other: Relational/Emotional Strength [] Patient feels connected with others/family/visitors/staff [] Distress [] Loneliness/isolation [] Abandonment Spirituality of Patient [x] Person of Christina [] Attends Buddhism of their Christina [x] Believes in Prayer [] Reads Bible or Advent materials [] There are Spiritual issues to be addressed Trimmer Climber Interventions [x] Prayer [x] Active listening [] Non-anxious presence [] Spiritual/emotional support [] Crisis/trauma care [] Spiritual counseling [] Bereavement support [] Provided bereavement packet [x] Provided Bible/devotional materials [] Provided toy/stuffed animal, coloring book to patient or family member [] Provided Communion [] Anointing/[place] [] Salvation [x] Completed spiritual assessment [] Other: Impact on Illness or Injury [] Angry [] Fearful [] Anxious [] Often cries [] Exhaustion [] Unable to work [] Unable to attend gnosticism [] Unable to walk/stand [] Unable to read [] Unable to drive [] Unable to eat/drink [] Unable to sleep [] Unable to be with family [] Patient intubated [] Other: Summary Time spent with patient 10 min
[2024-06-29 11:38] LABS: Glucose Point of Care 234 mg/dL (70-110)
--- NOTE | 2024-06-29 12:09 | PM.MISC ---
Miscellaneous Note Note: Reviewed MRCP. CBD patent. OK to discharge. Follow up with me on 07/02/24 with LFTs.
--- NOTE | 2024-06-29 13:13 | PC.SOCIAL ---
IMM Updated pg 2 of IMM Updated and reviewed w/ patient. Copy provided and copy dated, initialed and placed in chart.
--- NOTE | 2024-06-29 15:00 | PC.NURSE ---
Discharge Note Patient discharged to home via private vehicle accompanied by . Discharge instructions reviewed with patient and/or livestock sales representative. Mobile pharmacy medications and/or prescriptions provided. Belongings/home medications returned.
--- NOTE | 2024-07-03 14:52 | P.DS_ITS ---
Discharge Providers Date of Admission: 06/27/24 16:19 Date of Discharge: June 29, 2024 Attending Provider at Admission: Cheko Rehman MD Attending Provider at Discharge: Tommie Llanes Consults: General surgery Primary Care Provider: Magdaleno Martinez MD Diagnoses at Discharge Discharge Diagnosis (1) Chronic cholecystitis: Status: Acute Reason for Visit Reason for Visit: abd pain radiates to back,chest pain Hospital Course Hospital Course 74 year old male with a past medical history significant for systemic lupus erythematosus, thrombocytopenia, hyperlipidemia, hypertension, and moderate obstructive lung disease who presents with epigastric/chest pain x 1 day. Patient reports onset when he was sitting on his couch today. Describes the sensation as heavy and heartburn-like. He reports radiation to between shoulder blades. Endorses associated mild shortness of breath and nausea. No diaphoresis. He initially rated his pain 8 out of 10. He received analgesics in the ED and is currently pain-free. He reports this is his fourth attacks since beginning of the new year. Attacks have happened about an hour after eating. There is concern about possible ca rdiac etiology from his PCP for which she was referred to a stress test and echocardiogram. He is unable to complete stress test due to his shortness of breath per documentation. In the emergency department, imaging revealed 1.4 cm calcified gallstone in the dependent gallbladder with gallbladder demonstrating moderately thickened gallbladder wall with moderate amount of surrounding stranding/edema consistent with calculus cholecystitis. Upon admission to the hospital general surgery was consulted. Patient was subsequently taken to the OR for initially a laparoscopic cholecystectomy nguyen nasra this was converted to an open cholecystectomy. Patient was noted to have a chronically inflamed gallbladder, inflammatory ring present, gallbladder was covered with omentum which adhered to the gallbladder. Gallbladder was filled with stones and atrophic. Postoperative course was complicated with postoperative pain and hypoxemia. Patient was requiring 2 L of oxygen. denied requiring any oxygen previously. He was monitored for an additional night in hospital. Chest x-ray was obtained which had not shown any evidence of acute cardiopulmonary abnormality. His oxygen was weaned to room air following use of incentive spirometer. Thought atelectasis may have been a component. Additionally patient did have an history of obstructive sleep apnea for which he Was noncompliant with CPAP. ambulatory O2 was checked and again patient did not require any supplemental oxygen. Lab workup had noted a increase in total bilirubin from 1.5-2.4 on the during which time patient had MRCP performed showing patent common bile duct. LFTs were within normal limits. Also was noted to have thrombocytopenia however this remained stable and patient did have any bleeding episodes. Instructed patient to follow up for outpatient CBC. Patient was cleared for discharge from surgery standpoint. Discharged home with postoperative instructions and follow-up instructions. Physical Exam Narrative: General: Patient is awake and alert. on Head: Normocephalic. Atraumatic. EOM intact. Neck: No JVD. Cardiovascular: RRR. No gallops. No murmurs. Lungs: Clear to auscultation, no use of accessory muscles, no crackles or wheezes. Skin: No jaundice. No rashes. Abdomen: Post op surgical dressing in place. Non-distended Musculoskeletal: No swollen or erythematous joints. Neurological: Moves all 4 extremities. No myoclonus. Discharge Data Studies Completed and Pending Completed Studies During Hospitalization Category Date Time Status CTA chest abdomen pelvis [CT ang ches abdpel 20724/ Cat Scan 06/26/24 21:02 Completed 17021] Stat CXRP [XR chest 1V portable [id number]] Stat Exams 06/26/24 19:12 Completed XR chest 1V portable [id number] Stat Exams 06/28/24 23:43 Completed MR MRCP [id number] Routine MRI 06/29/24 08:11 Completed Pathology: Surgical [PTH] Routine Pth 06/27/24 11:28 Completed CV. echo complete* [id number] Stat Ultrasound 06/27/24 23:01 Completed Radiology Impressions Chest/Abdomen/Pelvis CTA 06/26/24 21:02 IMPRESSION: 1.4 cm calcified gallstone in the dependent gallbladder. Gallbladder demonstrates a moderately thickened gallbladder wall with moderate amount of surrounding stranding and edema. These findings are consistent with calculus cholecystitis. Chest X-Ray 06/28/24 23:43 IMPRESSION: No acute findings. Cholangiopancreatography MRI 06/29/24 08:11 Impression: Limited examination due to respiratory artifact on the breath-hold images 1. Interval cholecystectomy. No drainable fluid collections. 2. Common bile duct appears patent. No evidence of choledocholithiasis. 3. If continued concern for obstruction, recommend ERCP in further evaluation due to scan limitations. Laboratory Results WBC 7.68 10^3/uL (3.29-11.43) 06/29/24 06:13 RBC 3.94 10^6/uL (3.85-5.65) 06/29/24 06:13 Hgb 12.60 g/dL (11.27-16.99) 06/29/24 06:13 Hct 37.0 % (37-53) 06/29/24 06:13 MCV 93.9 fl (82-101) 06/29/24 06:13 MCH 32.0 pg (27-33) 06/29/24 06:13 MCHC 34.1 g/dL (30-55) 06/29/24 06:13 RDW 13.3 % (12.1-15.1) 06/29/24 06:13 Plt Count 88 10^3/cmm (157-399) L 06/29/24 06:13 MPV 9.3 fL (7.4-10.4) 06/29/24 06:13 Neut % (Auto) 68.6 % 06/29/24 06:13 Lymph % (Auto) 18.5 % 06/29/24 06:13 [place] % (Auto) 12.1 % 06/29/24 06:13 Eos % (Auto) 0.3 % 06/29/24 06:13 Baso % (Auto) 0.1 % 06/29/24 06:13 Neut # (Auto) 5.27 10^3/uL (1.8-7.7) 06/29/24 06:13 Lymph # (Auto) 1.4 10^3/uL (0.8-4.8) 06/29/24 06:13 [place] # (Auto) 0.9 10^3/uL (0.2-0.9) 06/29/24 06:13 Eos # (Auto) 0.0 10^3/uL (0.0-0.8) 06/29/24 06:13 Baso # (Auto) 0.0 10^3/uL (0.0-0.1) 06/29/24 06:13 Nucleated RBC % (auto) 0 % 06/29/24 06:13 Nucleated RBCs # 0.0 /100WBC 06/29/24 06:13 Sodium 133 mmol/L (136-145) L 06/29/24 06:13 Potassium 4.1 mmol/L (3.5-5.1) 06/29/24 06:13 Chloride 101 mmol/L (98-107) 06/29/24 06:13 Carbon Dioxide 20 mmol/L (22-29) L 06/29/24 06:13 Anion Gap 16.1 (5-19) 06/29/24 06:13 BUN 19 mg/dL (8-23) 06/29/24 06:13 Creatinine 1.1 mg/dL (0.7-1.2) 06/29/24 06:13 GFR Calculation Not Reportable 06/29/24 06:13 Glucose 193 mg/dL (65-115) H 06/29/24 06:13 POC Glucose 234 mg/dL (70-110) H 06/29/24 11:28 Calculated Osmolality 284 mOsm/kg (285-295) L 06/29/24 06:13 Calcium 9.0 mg/dL (8.5-10.5) 06/29/24 06:13 Phosphorus 3.2 mg/dL (2.5-4.5) 06/27/24 00:57 Magnesium 2.1 mg/dL (1.7-2.3) 06/27/24 00:57 Total Bilirubin 2.4 mg/dL (0.15-1.2) H 06/29/24 06:13 AST 36 U/L (0-40) 06/29/24 06:13 ALT 26 U/L (0-41) 06/29/24 06:13 Alkaline Phosphatase 54 U/L (40-130) 06/29/24 06:13 Troponin T Baseline 10 ng/L (0-15) 06/26/24 18:43 Troponin T 120 Minute 10.80 ng/L (0-15) 06/26/24 20:45 Delta Troponin T 0.80 ABS# (0-10) 06/26/24 20:45 Troponin T Hi Sens 6Hr 11.64 ng/L (0-15) 06/27/24 00:57 Troponin T Hi Sens 6Hr Delta 1.64 ng/L (0-12) 06/27/24 00:57 Total Protein 6.3 g/dL (6.6-8.7) L 06/29/24 06:13 Albumin 3.3 g/dL (3.5-5.2) L 06/29/24 06:13 Globulin 3.0 g/dL (1.3-4.6) 06/29/24 06:13 Lipase 64 U/L (13-60) H 06/26/24 18:43 Vitals Last Vital Signs Temp 99.0 F 06/29/24 15:01 Pulse 80 06/29/24 15:01 Resp 19 H 06/29/24 15:01 BP 169/78 06/29/24 15:01 Pulse Ox 94 06/29/24 15:01 O2 Del Method Room Air 06/29/24 12:00 O2 Flow Rate 2 06/28/24 21:17 Discharge Plan Discharge Patient Disposition: Home Condition: Stable Prescriptions: New oxycodone 5 mg tablet 5 mg PO Q6H PRN (Reason: pain) 5 Days Qty: 20 0RF Continued atorvastatin 10 mg tablet 10 mg PO DAILY amlodipine 5 mg tablet 5 mg PO DAILY cetirizine [All Day Allergy (cetirizine)] 10 mg tablet 10 mg PO DAILY PRN (Reason: Allergy Symptoms) Centrum Silver 0.4 mg-300 mcg- 250 mcg tablet 1 tab PO DAILY glimepiride 2 mg tablet 2 mg PO DAILY albuterol sulfate 90 mcg/actuation HFA aerosol inhaler 1 inh inhalation Q6H PRN (Reason: shortness of breath or wheezing) Qty: 8.5 3RF hydroxychloroquine [Plaquenil] 200 mg tablet 400 mg PO DAILY Qty: 180 1RF valsartan 80 mg tablet 80 mg PO DAILY Qty: 90 3RF No Action bisacodyl [Dulcolax (bisacodyl)] 5 mg tablet,delayed release (DR/EC) 5 mg PO DAILY Qty: 7 0RF Discharge Orders: Discharge Order (Routine); Ordered 06/29/24 Ordered By: Tommie Llanes Other Ambulatory Orders: Comprehensive Metabolic Panel (Routine) Timeframe: [id number] Facility: [facility] - Location: Lab - Main Lab Ordered By: Tommie Llanes Referrals: Russ Ball MD [Physician] - 07/03/24 9:00 am (We have notified your physician's clinic of the need for a follow-up appointment to be scheduled. If you have not heard from them within the next 2 business days, please call them directly. Please call office to make appointment for 07/03/24 AT 9:00 Please COME EARLY AND GET BLOOD DRAW BEFORE APPOINTMENT ) Magdaleno Martinez MD [Primary Care Provider] - 07/06/24 11:15 am () Discharge Diet: Usual diet Discharge Activity: Limit activity as instructed Patient Instructions: Oxycodone/Acetaminophen (By mouth), Acute Wound Care (DC), Open Cholecystectomy (GEN), Opioid Safety, Post Anesthesia Care Activity Restrictions/Additional Instructions: 1. No heavy exercise or lifting greater than 10lbs for 6 weeks. 2. No pools, saunas, bathtubs for [address] if taking narcotics. 4. You may take over the counter tylenol 650mg every 6 hrs and ibuprofen 400mg every 6 hrs as needed for 5 days in addition to the oxycodone. 5. Follow-up in clinic in 2 weeks. 6. Call the office if you have any concerns or questions. Discharge Attestations Time Spent in Discharge Care*: greater than 30 min Status at Discharge: Cognitive status at discharge: cognitively intact , Behavioral status at discharge: cooperative , Functional status at discharge: independent ambulation , Overall status at discharge: patient is progressing back to baseline (Still having some post operative pain ) Quality Metrics Clinical Quality Measures [ No reported AMI, CVA or VTE this stay] Coding Level of Care Code Acute Code for Chg Fwd Diagnoses Chronic cholecystitis K81.1
== END 2024-06-29 15:03 | disposition home or self-care (01) | DRG 415 ==
LOC: ER 22:27 → MEDSURG 23:16
PROVIDERS: Emergency Medicine; Student in an Organized Health Care Education/Training Program; Admitting Provider Internal Medicine; Emergency Provider Emergency Medicine; PCP Family Medicine; Visit Provider Hospitalist
PROC: 0FT40ZZ Resection of Gallbladder, Open Approach (ICD-10-PCS; CPT 49320; principal; 2024-06-27 10:00)
PROC: 0FT40ZZ Resection of Gallbladder, Open Approach (ICD-10-PCS; CPT 49000; 2024-06-27 10:00)
PROC: 0FT40ZZ Resection of Gallbladder, Open Approach (ICD-10-PCS; CPT 47600; 2024-06-27 10:00)
DX: K80.00 Calculus of gallbladder with acute cholecystitis without obstruction (principal); J98.11 Atelectasis; M32.9 Systemic lupus erythematosus, unspecified; D69.6 Thrombocytopenia, unspecified; E78.5 Hyperlipidemia, unspecified; I10 Essential (primary) hypertension; R09.02 Hypoxemia; G47.33 Obstructive sleep apnea (adult) (pediatric); M17.0 Bilateral primary osteoarthritis of knee; J44.9 Chronic obstructive pulmonary disease, unspecified; Z91.199 Patient's noncompliance with other medical treatment and regimen due to unspecified reason; I45.10 Unspecified right bundle-branch block
CPT/HCPCS: 36415; 36416; 71045; 71275; 74174; 74181; 80053; 82962; 83690; 83735; 84100; 84484; 85025; 88304; 93005; 93306; 94060; 94640; 94726; 94729; 96365; 96372; 96375; 99285; A4216; G0378; J0131; J0360; J1100; J1171; J1815; J1885; J2371; J2405; J2543; J2704; J3010; J3490; J7030; J7613

== ENCOUNTER 2024-07-02 18:38 | Emergency (ER) | payer MEDICARE, OTHER, SELFPAY ==
[2024-07-02 19:02] VITALS: BP 127/78; PULSE 93; RESP 18; TEMP 36.8; O2SAT 94; BMI 33.0
--- NOTE | 2024-07-02 22:50 | W.ED.ABDPA2 ---
HPI - Abdominal Pain General: Chief Complaint: Abdominal Pain Stated Complaint: said same problem needs cath Time Seen by Provider: 07/02/24 22:37 Source: patient and family Mode of arrival: ambulatory Limitations: no limitations History of Present Illness: Patient is a 74-year-old male who presents the emergency department complaining of abdominal pain since Saturday. Patient was seen here in the emergency department on 06/26 with complaints of chest pain into the back. At that time he had his heart checked and this was normal. However had a chest abdomen pelvis CTA that showed signs of acute cholecystitis. Patient was admitted at that time and had surgery performed on 06/27. Of note this began as a laparoscopic procedure but turned into an open surgery, as it was noted that the gallbladder had inflammatory rind and was adhered to the omentum. He was discharged from the hospital a few days later, where he also had MRCP performed showing common bile duct being patent. He was also requiring some oxygen while in the hospital ultimately was discharged in stable condition. He notes that the pain has been consistent since discharge, initially was having quite a bit of constipation but states that while in triage she had a large bowel movement, however this did not do much for his pain. He is reporting some shortness of breath associated with the pain. He notes bruising has gotten worse to his right flank region, and he has felt more sick to his stomach. He has not vomited and there has been no diarrhea. Still passing gas even when he was feeling constipated. He has been taking oxycodone and Tylenol for pain, but only today started taking something for constipation. Spouse states that while in triage patient was acting confused and was making a couple of [id number] statements. Currently he is rating his pain as an 8.5/10. Vitals are within normal limits. Denies fever, chest pain, or other symptoms at this time. MD elicited complaint: abdominal pain Pertinent past history: other (Recent cholecystectomy) Onset (ago): day(s) Pain Consistency: constant Location: RUQ Severity: severe Pain scale (0-10): 8 Quality: stabbing and sharp Radiation: back Exacerbating factors: nothing Relieving factors: nothing Associated Symptoms: Reports constipation and nausea; Denies bloating, change in stool character, chills, diarrhea, dysuria, fever(s), hematochezia and vomiting Treatments prior to arrival: prescription analgesics Related Data Home Medications ?Medication ?Instructions ?Recorded ?Confirmed amlodipine 5 mg tablet 5 mg PO DAILY 09/30/19 06/26/24 atorvastatin 10 mg tablet 10 mg PO DAILY 09/30/19 06/26/24 glimepiride 2 mg tablet 2 mg PO DAILY 06/18/22 06/26/24 cetirizine 10 mg tablet (All Day 10 mg PO DAILY PRN Allergy Symptoms 09/14/22 06/26/24 Allergy (cetirizine)) [id number] acid 0.4 1 tab PO DAILY 09/14/22 06/26/24 mg-lycopene 300 mcg-lutein 250 mcg tablet (Centrum Silver) Previous Rx's ?Medication ?Instructions ?Recorded valsartan 80 mg tablet 80 mg PO DAILY #90 tabs 04/12/23 albuterol sulfate 90 mcg/actuation 1 inh inhalation Q6H PRN shortness 06/19/23 aerosol inhaler of breath or wheezing #8.5 grams hydroxychloroquine 200 mg tablet 400 mg (2 x 200 mg) PO DAILY #180 01/28/24 (Plaquenil) tabs oxycodone 5 mg tablet 5 mg PO Q6H PRN pain 5 days #20 06/28/24 tabs bisacodyl 5 mg tablet,delayed 5 mg PO DAILY #7 tabs 07/02/24 release (Dulcolax (bisacodyl)) Allergies Allergy/AdvReac Type Severity Reaction Status Date / Time No Known Allergies Allergy Verified 07/02/24 19:09 Review of Systems General: Reports: 10 or more systems reviewed and unremarkable except in HPI and below Const: Denies: fever(s), chills, change in appetite, change in weight or diaphoresis ENMT: Denies: throat pain or hoarseness Card: Denies: chest pain, palpitations or lightheadedness Resp: Reports: dyspnea; Denies: productive cough or wheezing GI: Reports: abdominal pain, nausea and constipation; Denies: vomiting, diarrhea, bloating, change in stool character or hematochezia : Denies: flank pain, difficulty urinating, dysuria, urinary frequency or urinary urgency Musc: Reports: back pain; Denies: neck pain Skin/Breast: Reports: other (bruising to right flank); Denies: rash or new lesions Neuro: Reports: confusion (per ); Denies: headache(s) or dizziness PFSH ED PFSH: Medical History Acute cholecystitis Transaminitis Hyperlipidemia Hypertension Osteoarthritis of knees, bilateral Immunization counseling High risk medication use Thrombocytopenia SLE (systemic lupus erythematosus) Positive RUSH (antinuclear antibody) Surgical History History of tonsillectomy Family History Other Cancer Hypertension Stroke Denies family history of Rheumatoid arthritis Systemic lupus erythematosus (SLE) in adult Social History Smoking and tobacco/nicotine status: never used tobacco/nicotine Alcohol intake: current Alcohol intake frequency: holidays/special occasions only Alcohol type: beer Substance/Drug Use: never Physical Exam Const: COMMON NORMALS: patient oriented x3, no limitations, alert and well nourished GENERAL APPEARANCE: cooperative ORIENTATION/CONSCIOUSNESS: Yes awake OTHER: Appears uncomfortable HENMT: COMMON NORMALS: normocephalic, atraumatic, hearing grossly normal bilaterally, external ears normal, Normal external nose present, Normal nasal mucous membranes and turbinates present and moist oral mucous membranes HEAD & SCALP: normocephalic and atraumatic NOSE: Normal external nose present and Normal nasal mucous membranes and turbinates present EXTERNAL EAR: Yes external ears normal Eye: COMMON NORMALS: Equal, round and reactive pupils present, EOMs intact bilaterally, conjunctivae normal and normal visual robles by confrontation CONJUNCTIVA: Yes conjunctivae normal PUPIL: Yes Equal, round and reactive pupils present Neck/C-Spine: COMMON NORMALS: full ROM, supple, no meningeal signs and no JVD Resp: COMMON NORMALS: normal respiratory effort, No retractions, No use of accessory muscles and clear to auscultation bilaterally AUSCULTATION: clear to auscultation bilaterally, no crackles, no rales, no rhonchi and no wheezes Cardio: COMMON NORMALS: no JVD, regular rate, regular rhythm, S1 normal heart sound present, S2 normal heart sound present, No gallops present (Cardio), No clicks present (Cardio), No murmurs present (Cardio), No rub (Cardio) and Peripheral pulses 2+ throughout RATE: regular rate RHYTHM: regular rhythm HEART SOUNDS: S1 normal heart sound present and S2 normal heart sound present PERIPHERAL PULSES: Peripheral pulses 2+ throughout GI: RECTAL EXAM: Yes deferred OTHER: There is essentially diffuse tenderness to palpation of the abdomen, worse to the right upper quadrant. There is a large postoperative scar that does not demonstrate any signs of active discharge or bleeding. There is some surrounding ecchymosis to the scar, but primarily there is a large amount of ecchymosis to the right flank region. Bowel sounds are normal. Mild distention noted of the abdomen. Evidence of laparoscopic incisions is well appearing without complication. : COMMON NORMALS: Yes no CVA tenderness BLADDER/KIDNEY EXAM: Yes no CVA tenderness Back/Pelvis: COMMON NORMALS: no CVA tenderness Extremity: COMMON NORMALS: normal to inspection, full ROM and no pedal edema Neuro: COMMON NORMALS: patient oriented x3, moves all extremities, no focal motor deficits and no sensory deficits noted SENSORIUM/ORIENTATION: Yes alert MENINGEAL SIGNS: Yes no meningeal signs Psych: COMMON NORMALS: mental status grossly normal, cooperative and speech normal SPEECH: Yes normal speech Skin: COMMON NORMALS: no rashes or lesions noted GENERAL SKIN EXAM: no rashes or lesions noted Course Vital Signs: Vital signs: Vital Signs Temperature 98.3 F 07/02/24 19:02 Pulse Rate 77 07/03/24 00:30 Respiratory Rate 19 H 07/03/24 00:30 Blood Pressure 145/83 07/03/24 00:30 Pulse Oximetry 92 07/03/24 00:30 Oxygen Delivery Me thod Room Air 07/02/24 23:00 MDM - Abdominal Pain Medical Decision Making Patient presented for abdominal pain that has been steady since over the weekend when he had his gallbladder removed. On examination there was a large postoperative scar that did not appear infected, was healing well. Mild distention of the abdomen and he was diffusely tender but worse to the right upper quadrant. Vitals have been within normal limits throughout the ED stay. I did review his hospital notes operative note to fullest extent. He was discharged in stable condition. Here his CBC was unremarkable, white count was normal. Mild elevation in his LFTs, history of transaminitis. His total bilirubin was down from last value recorded in the hospital. Kidney function was normal, urinalysis negative for any infection. He had voiced that his main complaint here in the ED was his urgency to urinate, was mainly concerned of his prostate. Does not take any medications for his prostate. There is no infection on urine and his kidney function was normal so informed him to follow-up with primary care in regards to this. He was able to void here for his urine. CT showed normal changes postoperatively with no hematoma or abscess formation. With the mild elevation in transaminitis and mild ascites I do think he needs to see his general surgeon, and then states that he sees them Saturday so he will keep this appointment for follow-up. Was given morphine here and his pain has been controlled, there also could be an element of constipation as he notes pain did somewhat improve after having large bowel movement in triage. Told him to start taking MiraLAX along with his oxycodone and Tylenol. Discussed strict return precautions of which patient and verbalized understanding. He will return if his condition worsens over the weekend but otherwise follow-up on Saturday with general surgery. Discussed case with Dr. Abrams. Lab Data 07/02/24 23:15 07/02/24 23:15 Labs/Radiology: Radiology Impressions Abdomen/Pelvis CT 07/02/24 22:51 IMPRESSION: 1. Post cholecystectomy with expected pneumoperitoneum in the anterior abdominal wall stranding at the trocar sites. No collections suggest abscess formation. 2. Mild ascites. COMMENTS: Consistent with the [employer]'s Incidental Findings Committee white paper (J Am Gene Radiol 2018): Any incidental renal lesion less than 1 cm or classified as too small to characterize, or any incidental cystic renal lesion characterized as simple-appearing, is likely benign. No follow-up imaging is recommended for these lesions per consensus recommendations based on imaging criteria. Laboratory Results WBC 8.38 10^3/uL (3.29-11.43) 07/02/24 23:15 RBC 4.21 10^6/uL (3.85-5.65) 07/02/24 23:15 Hgb 13.20 g/dL (11.27-16.99) 07/02/24 23:15 Hct 37.6 % (37-53) 07/02/24 23:15 MCV 89.3 fl (82-101) 07/02/24 23:15 MCH 31.4 pg (27-33) 07/02/24 23:15 MCHC 35.1 g/dL (30-55) 07/02/24 23:15 RDW 12.6 % (12.1-15.1) 07/02/24 23:15 Plt Count 160 10^3/cmm (157-399) 07/02/24 23:15 MPV 9.7 fL (7.4-10.4) 07/02/24 23:15 Neut % (Auto) 86.9 % 07/02/24 23:15 Lymph % (Auto) 4.7 % 07/02/24 23:15 [place] % (Auto) 7.6 % 07/02/24 23:15 Eos % (Auto) 0.1 % 07/02/24 23:15 Baso % (Auto) 0.1 % 07/02/24 23:15 Neut # (Auto) 7.28 10^3/uL (1.8-7.7) 07/02/24 23:15 Lymph # (Auto) 0.4 10^3/uL (0.8-4.8) L 07/02/24 23:15 [place] # (Auto) 0.6 10^3/uL (0.2-0.9) 07/02/24 23:15 Eos # (Auto) 0.0 10^3/uL (0.0-0.8) 07/02/24 23:15 Baso # (Auto) 0.0 10^3/uL (0.0-0.1) 07/02/24 23:15 Nucleated RBC % (auto) 0 % 07/02/24 23:15 Nucleated RBCs # 0.0 /100WBC 07/02/24 23:15 Sodium 135 mmol/L (136-145) L 07/02/24 23:15 Potassium 4.4 mmol/L (3.5-5.1) 07/02/24 23:15 Chloride 100 mmol/L (98-107) 07/02/24 23:15 Carbon Dioxide 23 mmol/L (22-29) 07/02/24 23:15 Anion Gap 16.4 (5-19) 07/02/24 23:15 BUN 16 mg/dL (8-23) 07/02/24 23:15 Creatinine 0.9 mg/dL (0.7-1.2) 07/02/24 23:15 GFR Calculation Not Reportable 07/02/24 23:15 Glucose 226 mg/dL (65-115) H 07/02/24 23:15 Calculated Osmolality 288 mOsm/kg (285-295) 07/02/24 23:15 Calcium 8.9 mg/dL (8.5-10.5) 07/02/24 23:15 Total Bilirubin 2.0 mg/dL (0.15-1.2) H 07/02/24 23:15 AST 78 U/L (0-40) H 07/02/24 23:15 ALT 101 U/L (0-41) H 07/02/24 23:15 Alkaline Phosphatase 143 U/L (40-130) H 07/02/24 23:15 Total Protein 6.7 g/dL (6.6-8.7) 07/02/24 23:15 Albumin 3.3 g/dL (3.5-5.2) L 07/02/24 23:15 Globulin 3.4 g/dL (1.3-4.6) 07/02/24 23:15 Lipase 8 U/L (13-60) L 07/02/24 23:15 Urine Color Yellow (Yellow) 07/02/24 23:45 Urine Appearance Clear (CLEAR) 07/02/24 23:45 Urine pH 5.5 (5-7) 07/02/24 23:45 Ur Specific [place] 1.027 (1.005-1.030) 07/02/24 23:45 Urine Protein Trace (Negative) A 07/02/24 23:45 Urine Glucose (UA) Trace (Normal) H 07/02/24 23:45 Urine Ketones 1+ (Negative) H 07/02/24 23:45 Urine Blood Negative (Negative) 07/02/24 23:45 Urine Nitrate Negative (Negative) 07/02/24 23:45 Urine Bilirubin Negative (Negative) 07/02/24 23:45 Urine Urobilinogen 1.0 mg/dL (Negative) 07/02/24 23:45 Ur Leukocyte Esterase Negative (Negative) 07/02/24 23:45 Urine RBC None /hpf (0-2) 07/02/24 23:45 Urine WBC None /hpf (0-5) 07/02/24 23:45 Ur Squamous Epith Cells None /hpf (0-5) 07/02/24 23:45 Amorphous Sediment Not Reportable 07/02/24 23:45 Urine Bacteria None /hpf (NONE) 07/02/24 23:45 All radiology interpretation(s) finalized by discharge Discharge Plan Discharge Patient Disposition: Home Clinical Impression: Post-operative pain, Transaminitis Condition: Stable Prescriptions: No Action atorvastatin 10 mg tablet 10 mg PO DAILY amlodipine 5 mg tablet 5 mg PO DAILY cetirizine [All Day Allergy (cetirizine)] 10 mg tablet 10 mg PO DAILY PRN (Reason: Allergy Symptoms) Centrum Silver 0.4 mg-300 mcg- 250 mcg tablet 1 tab PO DAILY glimepiride 2 mg tablet 2 mg PO DAILY albuterol sulfate 90 mcg/actuation HFA aerosol inhaler 1 inh inhalation Q6H PRN (Reason: shortness of breath or wheezing) Qty: 8.5 3RF hydroxychloroquine [Plaquenil] 200 mg tablet 400 mg PO DAILY Qty: 180 1RF valsartan 80 mg tablet 80 mg PO DAILY Qty: 90 3RF bisacodyl [Dulcolax (bisacodyl)] 5 mg tablet,delayed release (DR/EC) 5 mg PO DAILY Qty: 7 0RF oxycodone 5 mg tablet 5 mg PO Q6H PRN (Reason: pain) 5 Days Qty: 20 0RF Discharge Orders: Discharge ED (Routine); Ordered 07/03/24 Ordered By: Zackary Amaya Referrals: Magdaleno Martinez MD [Primary Care Provider] - Patient Instructions: Pain Management (ED) Activity Restrictions/Additional Instructions: Follow-up with general surgery on Saturday as you already have planned. Continue taking your oxycodone and Tylenol, but begin taking stool softener as well to avoid any constipation. Please return with any high fever, severe worsening of pain, confusion, or other significant concerns. Continue other home medications. Follow-up with primary care as well to discuss your urinary urgency. Print Language: [place]er Coding Level of Care Code ED [place] for Jude Gray
--- NOTE | 2024-07-02 22:51 | CTR_ITS ---
PROCEDURE INFORMATION: Exam: CT Abdomen And Pelvis With Contrast Exam date and time: 07/02/2024 11:27 PM Age: 74 years old Clinical indication: Abdominal tenderness; Abdominal pain; Right lower quadrant (rlq); Prior surgery; Surgery date: <1 month; Surgery type: Gall bladder; Additional info: Postcholecystectomy, abdominal pain worsened TECHNIQUE: Imaging protocol: Computed tomography of the abdomen and pelvis with contrast. Radiation optimization: All CT scans at this facility use at least one of these dose optimization techniques: automated exposure control; mA and/or kV adjustment per patient size (includes targeted exams where dose is matched to clinical indication); or iterative reconstruction. Contrast material: OMNI 350; Contrast volume: 100 ml; Contrast route: INTRAVENOUS (IV); COMPARISON: MR MRCP [id number] 06/29/2024 10:14 AM RADIATION DOSE METRICS: Total DLP (mGy-cm): 1077.02 FINDINGS: Lungs: Right lower lobe atelectasis. Pleural spaces: Trace right pleural effusion. Coronary arteries: There is mild atherosclerotic calcification of the coronary arteries. Liver: Normal. No mass. Gallbladder and biliary ducts: There has been a cholecystectomy. There are inflammatory changes in the gallbladder fossa, postop. Pancreas: Normal. No ductal dilation. Spleen: Normal. No splenomegaly. Adrenal glands: Normal. No mass. Kidneys and ureters: At least 2 simple cysts in the left kidney measuring up to 1.4 cm in the upper pole. There is no evidence of hydronephrosis. Nonobstructing stone in the lower pole of the left kidney measuring 4 mm. There is no evidence of hydronephrosis. Stomach and bowel: Mild distension of the jejunal loops reaching 3 cm with no transition zone to suggest obstruction. Appendix: No evidence of appendicitis. Intraperitoneal space: There is mild amount of postoperative free air in the left upper quadrant. Vasculature: Unremarkable. No abdominal aortic aneurysm. Lymph nodes: Unremarkable. No enlarged lymph nodes. Urinary bladder: Unremarkable as visualized. Reproductive: The prostate gland demonstrates nonspecific parenchymal calcifications. Bones/joints: Mild degenerative disease of the sacroiliac joints. There are mild degenerative changes of the hip joints. The pubic symphysis demonstrates mild degenerative changes. Soft tissues: Bilateral fat containing inguinal hernias. CT/CT abdomen pelvis w con* [id number] IMPRESSION: 1. Post cholecystectomy with expected pneumoperitoneum in the anterior abdominal wall stranding at the trocar sites. No collections suggest abscess formation. 2. Mild ascites. COMMENTS: Consistent with the [place] [employer]'s Incidental Findings Committee white paper (J Am Gene Radiol 2018): Any incidental renal lesion less than 1 cm or classified as too small to characterize, or any incidental cystic renal lesion characterized as simple-appearing, is likely benign. No follow-up imaging is recommended for these lesions per consensus recommendations based on imaging criteria.
[2024-07-02] MEDS: ondansetron 2 mg/ML SDV 2 mL 4 MG IVP (22:57)
[2024-07-02 22:58] VITALS: RESP 18; O2SAT 94
[2024-07-02] MEDS: morphine 4 mg/mL SDV 1 mL IVP (22:58)
[2024-07-02 22:59] VITALS: BP 157/84; PULSE 80; RESP 19; O2SAT 94
[2024-07-02 23:00] VITALS: BP 168/88; PULSE 83; RESP 18; O2SAT 92
[2024-07-02 23:30] VITALS: BP 168/91; PULSE 82; RESP 20; O2SAT 93
[2024-07-02 23:32] LABS: Basophils % 0.1 %; Eosinophils % 0.1 %; Hematocrit 37.6 % (37-53); Lymphocytes # 0.4 10^3/uL (0.8-4.8); Lymphocytes % 4.7 %; Mean Corpuscular HGB Conc 35.1 g/dL (30-55); Mean Corpuscular Hemoglobin 31.4 pg (27-33); Mean Corpuscular Volume 89.3 fl (82-101); Mean Platelet Volume 9.7 fL (7.4-10.4); Monocytes # 0.6 10^3/uL (0.2-0.9); Monocytes % 7.6 %; Neutrophils # 7.28 10^3/uL (1.8-7.7); Neutrophils % 86.9 %; Nucleated Red Blood Cells % 0 %; Platelet Count 160 10^3/cmm (157-399); Red Blood Count 4.21 10^6/uL (3.85-5.65); Red Cell Distribution Width 12.6 % (12.1-15.1); White Blood Count 8.38 10^3/uL (3.29-11.43)
[2024-07-02] MEDS: iohexol 350 mg/mL 500 mL Btl (per mL) IV (23:39)
[2024-07-02 23:51] LABS: Alanine Aminotransferase 101 U/L (0-41); Albumin Level 3.3 g/dL (3.5-5.2); Alkaline Phosphatase 143 U/L (40-130); Aspartate Amino Transferase 78 U/L (0-40); Blood Urea Nitrogen 16 mg/dL (8-23); Calcium 8.9 mg/dL (8.5-10.5); Carbon Dioxide 23 mmol/L (22-29); Chloride 100 mmol/L (98-107); Creatinine Clr Calc Pharmacy 89.7541; Globulin 3.4 g/dL (1.3-4.6); Glucose 226 mg/dL (65-115); Lipase 8 U/L (13-60); Osmolality Calculated 288 mOsm/kg (285-295); Sodium 135 mmol/L (136-145); Total Protein 6.7 g/dL (6.6-8.7)
[2024-07-02 23:56] LABS: Bilirubin Urine Negative (Negative); Blood Urine Negative (Negative); Glucose Urine UA Trace (Normal); Ketones Urine 1+ (Negative); Leukocyte Esterase Urine Negative (Negative); Nitrate Urine Negative (Negative); Protein Urine Trace (Negative); Specific Gravity, Urine 1.027 (1.005-1.030); Urine Appearance Clear (CLEAR); Urine Color Yellow (Yellow); pH Urine 5.5 (5-7)
[2024-07-03] VITALS: BP 148/83; PULSE 76; RESP 16; O2SAT 92
[2024-07-03 00:01] LABS: Anion Gap 16.4 (5-19); Potassium 4.4 mmol/L (3.5-5.1)
[2024-07-03 00:16] LABS: Add Urine Microscopic? YES
[2024-07-03 00:30] VITALS: BP 145/83; PULSE 77; RESP 19; O2SAT 92
[2024-07-03 01:37] VITALS: BP 138/64; PULSE 74; O2SAT 92
== END 2024-07-03 00:40 | disposition home or self-care (01) ==
PROVIDERS: Emergency Provider Physician Assistant; PCP Family Medicine
DX: G89.18 Other acute postprocedural pain (principal); R74.01 Elevation of levels of liver transaminase levels; E78.5 Hyperlipidemia, unspecified; I10 Essential (primary) hypertension
CPT/HCPCS: 36415; 74177; 80053; 81001; 83690; 85025; 96374; 96375; 99285; J2270; J2405

== ENCOUNTER 2024-07-06 10:08 | Outpatient (CLI) | payer MEDICARE, OTHER, SELFPAY ==
[2024-07-06 11:02] LABS: Basophils % 0.3 %; Eosinophils # 0.1 10^3/uL (0.0-0.8); Eosinophils % 1.8 %; Hematocrit 38.5 % (37-53); Lymphocytes # 1.2 10^3/uL (0.8-4.8); Lymphocytes % 15.9 %; Mean Corpuscular HGB Conc 34.8 g/dL (30-55); Mean Corpuscular Hemoglobin 31.2 pg (27-33); Mean Corpuscular Volume 89.7 fl (82-101); Mean Platelet Volume 9.4 fL (7.4-10.4); Monocytes # 0.6 10^3/uL (0.2-0.9); Monocytes % 7.7 %; Neutrophils # 5.35 10^3/uL (1.8-7.7); Neutrophils % 73.9 %; Nucleated Red Blood Cells % 0 %; Platelet Count 266 10^3/cmm (157-399); Red Blood Count 4.29 10^6/uL (3.85-5.65); Red Cell Distribution Width 12.5 % (12.1-15.1); White Blood Count 7.24 10^3/uL (3.29-11.43)
[2024-07-06 11:07] LABS: Erythrocyte Sedimentation Rate 41 mm/hr (0-10)
[2024-07-06 11:21] LABS: Alanine Aminotransferase 137 U/L (0-41); Albumin Level 3.5 g/dL (3.5-5.2); Alkaline Phosphatase 131 U/L (40-130); Aspartate Amino Transferase 102 U/L (0-40); C Reactive Protein 69.8 mg/L (0.0-4.9); Globulin 3.1 g/dL (1.3-4.6); Total Bilirubin 1.2 mg/dL (0.15-1.2); Total Protein 6.6 g/dL (6.6-8.7)
== END 2024-07-06 10:09 | disposition home or self-care (01) ==
LOC: LAB 10:10
PROVIDERS: Internal Medicine Rheumatology; PCP Family Medicine; Visit Provider Hospitalist
DX: M32.19 Other organ or system involvement in systemic lupus erythematosus (principal); Z79.899 Other long term (current) drug therapy; Z09 Encounter for follow-up examination after completed treatment for conditions other than malignant neoplasm
CPT/HCPCS: 36415; 80076; 82565; 85025; 85651; 86140; 99024

== ENCOUNTER 2024-08-05 09:57 | Outpatient (CLI) | payer MEDICARE, OTHER, SELFPAY ==
[2024-08-05 10:52] LABS: Alanine Aminotransferase 30 U/L (0-41); Albumin Level 4.1 g/dL (3.5-5.2); Alkaline Phosphatase 82 U/L (40-130); Aspartate Amino Transferase 24 U/L (0-40); Globulin 2.9 g/dL (1.3-4.6); Total Bilirubin 1.4 mg/dL (0.15-1.2)
== END 2024-08-05 09:58 | disposition home or self-care (01) ==
LOC: LAB 09:58
PROVIDERS: PCP Family Medicine; Visit Provider Internal Medicine Rheumatology
DX: K81.0 Acute cholecystitis (principal); Z79.899 Other long term (current) drug therapy
CPT/HCPCS: 36415; 80076

== ENCOUNTER → 2025-02-02 12:57 | Outpatient (BNVA) | payer MEDICARE, OTHER, SELFPAY | PROVIDERS: PCP Family Medicine; Visit Provider Internal Medicine Rheumatology | DX: M35.00 Sjogren syndrome, unspecified (principal); M05.79 Rheumatoid arthritis with rheumatoid factor of multiple sites without organ or systems involvement; Z79.899 Other long term (current) drug therapy; Z71.85 Encounter for immunization safety counseling | CPT/HCPCS: 99214 ==